=== PATIENT | male | born 1945 | race Caucasian/White ===

== ENCOUNTER 2016-08-01 03:51 | Inpatient (IN) | payer OTHER ==
[~2016-08-01] VITALS: Ht 149.9 cm; Wt 68.2 kg
[2016-08-01] MEDS ORDERED: SOD CHLORIDE 0.9% 1,000 ML IV STA (05:12)
[2016-08-01] MEDS ORDERED: ONDANSETRON 4 MG INJ IV STA ×2 (05:12→06:21)
[2016-08-01] MEDS ORDERED: BELLADONNA/PHENOBARBITAL TAB PO STA (05:12)
[2016-08-01] MEDS ORDERED: LIDOCAINE/MYLANTA 40 ML BTL PO STA (05:12)
[2016-08-01] MEDS ORDERED: morphine 4 MG/ML VIAL IV STA (05:12)
[2016-08-01 05:36] LABS: ADD SCAN DIFF NO
[2016-08-01 05:44] LABS: BASOPHIL # 0.1 10^3/ul (0.0-0.1); BASOPHILS % 0.3 % (0.0-2.0); EOSINOPHILS % 0.2 % (0.0-7.0); HEMATOCRIT 48.1 % (42.0-52.0); LYMPHOCYTES # 2.8 10^3/ul (0.8-2.9); MEAN CORPUSCULAR HGB CONC 33.3 g/dl (32.0-37.0); MEAN CORPUSCULAR VOLUME 90.1 fl (82.0-101.0); MEAN PLATELET VOLUME 8.9 fl (7.4-10.4); MONOCYTE # 0.8 10^3/ul (0.3-0.9); MONOCYTES % 4.5 % (0.0-11.0); NEUTROPHIL # 13.6 10^3/ul (1.6-7.5); NEUTROPHILS % 78.6 % (39.0-77.0); PLATELET COUNT 370 10^3/UL (140-415); RED BLOOD COUNT 5.34 10^6/ul (4.70-6.10); WHITE BLOOD COUNT 17.3 10^3/ul (4.8-10.8)
[2016-08-01 05:58] LABS: ALBUMIN 4.6 g/dl (3.3-4.9)
[2016-08-01 05:59] LABS: CHLORIDE 102 mmol/L (97-110); SODIUM 149 mmol/L (135-144)
[2016-08-01 06:01] LABS: ALBUMIN/GLOBULIN RATIO 1.39; ALKALINE PHOSPHATASE 92 IU/L (42-121); ASPARTATE AMINO TRANSFERASE 196 IU/L (15-46); BILIRUBIN,INDIRECT 0.3 mg/dl (0-1.1); BILIRUBIN,TOTAL 0.3 mg/dl (0.2-1.3); CARBON DIOXIDE 29 mmol/L (21-31); CREATININE 1.13 mg/dl (0.61-1.24); TOTAL PROTEIN 7.9 g/dl (6.1-8.1)
[2016-08-01 06:02] LABS: ALANINE AMINOTRANSFERASE 57 IU/L (13-69); BLOOD UREA NITROGEN 15 mg/dl (7-20); CALCIUM 9.8 mg/dl (8.4-10.2); GLUCOSE 244 mg/dl (70-220)
[2016-08-01 06:13] LABS: ANION GAP 21 (8-16)
[2016-08-01 06:14] LABS: ETHANOL < 10.0 mg/dl; TROPONIN-I < 0.012 ng/ml (0.00-0.12)
--- NOTE | 2016-08-01 06:18 | RADRPT ---
PROCEDURE: CT ABDOMEN/PELVIS WITHOUT CONTRAST CLINICAL INDICATION: 70-year-old male with abdominal pain. TECHNIQUE: The study was performed utilizing a [employer] VCT 64-slice CT scanner. Direct axia l sections were obtained through the abdomen and pelvis without the use of intravenous contrast mate rial. Sagittal and coronal reformations were obtained. One or more of the following dose reduction t echniques were utilized: automated exposure control, adjustment of the mA and/or kV according to pat ient's size or use of iterative reconstruction technique. The images were reviewed on a PACS workst [employer]. CTD/vol = 12.6 mGy; Total Exam DLP = 793.1 mGy-cm. COMPARISON: None. FINDINGS: Mild cardiomegaly is noted. Coronary artery calcifications are present. There is minimal bibasilar subsegmental atelectasis. There is no evidence for significant pleural effusion. There is mild free fluid identified surrounding the liver and spleen. The liver has a normal size and contour without focal areas of abnormal density. No intrahepatic nor extrahepatic biliary ductal dilatation is seen. The gallbladder is without calcified stones or significant wall thickening. The pancreas is diffus montse edematous with peripancreatic infiltration as well as mild free fluid extending into the anterio r pararenal space consistent with acute pancreatitis. The spleen is diminutive but without abnormal density. The adrenal glands are unremarkable. The kidneys are without abnormal density. No hydroure teronephrosis nor nephroureterolithiasis is evident. The urinary bladder contains urine and has kary ed diffuse wall thickening measuring up to 14 mm. The prostate is mildly enlarged and heterogeneous measuring 4.7 x 4.0 x 5.0 cm with central calcifications.. The stomach is distended wi th fluid. Multiple diverticula scattered throughout the colon without surrounding inflammatory day ges. There is no evidence for bowel obstruction. The appendix is visualized and is without abnorma l thickening or surrounding inflammatory reaction. There is a small right inguinal hernia containing fat. The aortoiliac vessels are minimally calcified but without aneurysmal dilatation. Degenerativ e changes are present throughout the spine. At L4-5 there is degenerative spondylolisthesis of appr oximately 25% with a vacuum disk and diffuse disk bulge resulting in [id number] bilateral fo raminal stenosis. There appears to be a transitional level. IMPRESSION: 1. Cardiomegaly with coronary artery calcifications. 2. Marked diffuse acute pancreatitis. 3. Mild free fluid surrounding the liver and spleen as well as within the anterior pararenal space. 4. Markedly thickened bladder wall measuring up to 14 mm. A cystitis could have this appearance. Clinical correlation is necessary. 5. Mildly enlarged heterogeneous prostate. 6. Colonic diverticulosis. 7. Small right inguinal hernia containing fat. 8. Degenerative changes within the spine. .Magnus Spears MD, MD Date Time Electronically viewed and signed by .Magnus Spears MD, MD on 08/01/2016 06:18 .M/
[2016-08-01] MEDS ORDERED: HYDROmorphONE 2 MG/ML SYG IV STA ×2 (06:21→12:59)
[2016-08-01] MEDS ORDERED: SOD CHLORIDE 0.9% 1,000 ML IV ONE (06:30)
--- NOTE | 2016-08-01 06:39 | ERA ---
ER Documentation Chief Complaint Date/Time DATE: 08/01/16 TIME: 06:30 Chief Complaint AP since 0200. Drank alcohol d/t Sister HPI Patient is a 70-year-old male who apparently drank alcohol because his sister . He was fine when he went to bed around 0200 a.m. he was awakened suddenly with severe epigastric pain and vomiting. He states the pain is now radiating to his upper back. He has never experienced this pain before and it is worse when he moves. He has not had any fever, diarrhea, dysuria, or hematuria. He says nothing really makes the pain better. He denies any chest pain, shortness of breath, cough, congestion, rhinorrhea, sore throat, otalgia, headache, vertigo, dizziness, loss of consciousness, hematemesis, hematochezia, melena, abnormal bleeding, or bruises. The remainder review systems are negative. ROS All systems reviewed and are negative except as per history of present illness. Allergies Allergies: Coded Allergies: No Known Allergy (Unverified , 08/01/16) PMhx/Soc History of Surgery: Yes (shoulder sx) Anesthesia Reaction: No Hx Neurological Disorder: No Hx Respiratory Disorders: No Hx Cardiac Disorders: No Hx Psychiatric Problems: No Hx Miscellaneous Medical Probl: Yes (borderline dm, hernia) Hx Alcohol Use: Yes Hx Substance Use: No Hx Tobacco Use: No Smoking Status: Never smoker FmHx Family History: coronary disease, diabetes Physical Exam Vitals Vital Signs Date Time Temp Pulse Resp B/P Pulse Ox O2 Delivery O2 Flow Rate FiO2 08/01/16 05:00 97.9 62 20 151/75 98 Room Air 08/01/16 04:08 96.6 69 18 142/67 96 Physical Exam Const: [] Well-developed well-nourished male lying on the bed in obvious discomfort Head: Atraumatic normocephalic Eyes: Normal Conjunctiva ENT: Normal External Ears, Nose and Mouth. Neck: Full range of motion..~ No meningismus. Resp: Clear to auscultation bilaterally Cardio: Regular rate and rhythm, no murmurs Abd: Soft, tender to palpation across the upper abdomen most prominent in the epigastric region, no audible bowel sounds, rebound noted in epigastric region, no masses Skin: No petechiae or rashes Back: No midline or flank tenderness Ext: No cyanosis, or edema Neur: Awake and alert, oriented 3 with a GCS of 15 Psych: Normal Mood and Affect Result Diagram: 08/01/1615 08/01/1615 Results 24 hrs Laboratory Tests Test 08/01/16 05:15 Alanine Aminotransferase (ALT/SGPT) 57IU/L Albumin 4.6g/dl Albumin/Globulin Ratio 1.39 Alkaline Phosphatase 92IU/L Anion Gap 21 Aspartate Amino Transf (AST/SGOT) 196IU/L Basophils # 0.110^3/ul Basophils % 0.3% Blood Urea Nitrogen 15mg/dl Calcium Level 9.8mg/dl Carbon Dioxide Level 29mmol/L Chloride Level 102mmol/L Creatinine 1.13mg/dl Direct Bilirubin 0.00mg/dl Eosinophils # 0.010^3/ul Eosinophils % 0.2% Ethyl Alcohol Level < 10.0mg/dl Globulin 3.30g/dl Glucose Level 244mg/dl Hematocrit 48.1% Hemoglobin 16.0g/dl Indirect Bilirubin 0.3mg/dl Lipase Pending Lymphocytes # 2.810^3/ul Lymphocytes % 16.0% Mean Corpuscular Hemoglobin 30.0pg Mean Corpuscular Hemoglobin Concent 33.3g/dl Mean Corpuscular Volume 90.1fl Mean Platelet Volume 8.9fl Monocytes # 0.810^3/ul Monocytes % 4.5% Neutrophils # 13.610^3/ul Neutrophils % 78.6% Nucleated Red Blood Cells # 0.010^3/ul Nucleated Red Blood Cells % 0.0/100WBC Platelet Count 30634^3/UL Potassium Level 3.0mmol/L Red Blood Count 5.3410^6/ul Red Cell Distribution Width 13.0% Sodium Level 149mmol/L Total Bilirubin 0.3mg/dl Total Protein 7.9g/dl Troponin I < 0.012ng/ml White Blood Count 17.310^3/ul Current Medications Medications (Trade) Dose Ordered Sig/Carol Route PRN Reason Start Time Stop Time Status Last Admin Dose Admin Sodium Chloride (NS) 1,000 ml @ 1,000 mls/hr Q1H STAT IV 08/01/16 05:12 08/01/16 06:11 DC 08/01/16 05:25 Morphine Sulfate (morphine) 4 mg ONCE STAT IV 08/01/16 05:12 08/01/16 05:14 DC 08/01/16 05:24 Ondansetron HCl (Zofran Inj) 4 mg ONCE STAT IV 08/01/16 05:12 08/01/16 05:14 DC 08/01/16 05:24 Miscellaneous Medication (Gi Cocktail (2)) 40 ml ONCE STAT PO 08/01/16 05:12 08/01/16 05:14 DC 08/01/16 05:24 Belladonna/ Phenobarbital () 2 tab ONCE STAT PO 08/01/16 05:12 08/01/16 05:14 DC 08/01/16 05:24 Hydromorphone HCl (Dilaudid) 2 mg ONCE STAT IV 08/01/16 06:21 08/01/16 06:22 DC Ondansetron HCl (Zofran Inj) 4 mg ONCE STAT IV 08/01/16 06:21 08/01/16 06:22 DC Procedures/MDM Differential includes but is not limited to epigastric pain, gastritis, ulcer, pancreatitis, cholecystitis, cholelithiasis, angina EKG: Rate/Rhythm: Normal Sinus Rhythm at 65 beats a minute with nonspecific T-wave flattening in the lateral leads no evidence for acute ischemia noted, no old EKG available for comparison QRS, ST, T-waves: No changes consistent w/ acute ischemia Impression: No evidence of ischemia or arrhythmia CT abdomen pelvis reveals marked pancreatitis 0630: Patient's blood pressure remained stable. He continues to have significant pain. I have ordered 2 mg of Dilaudid IV with 4 mg of Zofran IV. I have consulted the panel physician to admit him to the hospital for further evaluation and treatment. Departure Diagnosis: Primary Impression: Pancreatitis Qualified Code: K85.20 - Alcohol-induced acute pancreatitis, unspecified complication status Additional Impression: Abdominal pain Qualified Code: R10.13 - Epigastric pain Condition: KATERYNA Gann Aug 01, 2016 06:39
[2016-08-01] MEDS ORDERED: NA BICARBONATE 8.4% 50 ML SYG ONE (07:00)
[2016-08-01] MEDS ORDERED: CA CHLORIDE 10% 10 ML SYRINGE ONE (07:00)
[2016-08-01] MEDS ORDERED: EPINEPHrine 0.1 MG/ML SYG ONE (07:00)
[2016-08-01] MEDS ORDERED: NS + KCL 20 MEQ 1,000 ML IV SCH (08:56)
[2016-08-01] MEDS ORDERED: DOCUSATE SODIUM 100 MG CAP PO PRN (09:00)
[2016-08-01] MEDS ORDERED: NACL 0.9% 3 ML SYG IV SCH (09:00)
[2016-08-01] MEDS ORDERED: ACETAMINOPHEN 325 MG TAB PO PRN ×2 (09:00)
[2016-08-01] MEDS ORDERED: BISACODYL 10 MG SUPP PR PRN (09:00)
[2016-08-01] MEDS ORDERED: ONDANSETRON 4 MG INJ IV PRN (09:00)
[2016-08-01] MEDS ORDERED: HYDROCODONE/APAP (5/325) TAB PO PRN ×2 (09:00)
[2016-08-01] MEDS ORDERED: ACETAMINOPHEN 650 MG SUPP PR PRN (09:00)
[2016-08-01] MEDS ORDERED: POTASSIUM CHLORIDE 250 ML IVPB ONE ×2 (09:00→18:00)
[2016-08-01] MEDS ORDERED: MAGNESIUM HYDROXIDE 30ML CUP PO PRN (09:00)
[2016-08-01 14:20] VITALS: TEMP 98.1
[2016-08-01 14:45] VITALS: BP 171/101; PULSE 107; RESP 18
[2016-08-01] MEDS ORDERED: hydrALAzine 20 MG INJ IV PRN (15:00)
[2016-08-01] MEDS: D5W-0.45 NACL + KCL 20 MEQ 1,000 ML IV SCH (15:40)
--- NOTE | 2016-08-01 15:46 | HP ---
DATE OF ADMISSION: 08/01/2016 CHIEF COMPLAINT: Abdominal pain. HISTORY OF PRESENT ILLNESS: This is a 70-year-old male with past medical history of hypertension and dyslipidemia who came to [facility] due to reports of abdominal pain. According to the patient, he started to have abdominal pain roughly around 2:00 a.m. this morning. He did report that he had consumed some alcohol roughly half an ounce of vodka with soda around 6:00 p.m. He denied any chronic alcohol use. He did report that he started to drink after he found out that his sister was in a coma in [facility]. Subsequently, when he woke up with pain at 2:00 in the morning, he did have yellowish emesis and did report having vomiting for 45 minutes, nonbilious, nonbloody. He did report having also diffuse abdominal discomfort, more in the epigastric area. He did come to [facility] due to the aforementioned issues. Upon further examination, he did have CT scan of his abdomen that did show him to have cardiomegaly with coronary artery calcifications as well as marked diffuse acute pancreatitis and noted fluid surrounding the liver and spleen, as well as within the pararenal space. There was also markedly thickened bladder pressure to 14 mm with possibility of cystitis. He was also seen with colonic diverticulosis but no mention of diverticulitis. There was also seen a small right inguinal hernia containing fat. Patient also on blood work did have a sodium of 149, potassium 3.0 and a lipase of 37,137. He also had a white count of 17.3. We will evaluate him for the aforementioned issues. MEDICAL AND SURGICAL HISTORY 1. Hypertension. 2. Dyslipidemia. 3. Reported abdominal tumor (details of this history are unknown). ALLERGIES: NO KNOWN ALLERGIES. SOCIAL HISTORY: Patient does report consuming alcohol, but no drug use or cigarette smoking. ALLERGIES: NO KNOWN ALLERGIES. FAMILY HISTORY: Noncontributory. REVIEW OF SYSTEMS: A 12-point review of systems obtained and is entirely negative except as mentioned in the history of present illness. HOME MEDICATIONS: None. PHYSICAL EXAMINATION: VITAL SIGNS: Temperature is 98.1, pulse 78, respiratory rate 20, blood pressure 166/98 and pulse oximetry 98% on room air. GENERAL: This is a 70-year-old male, appears stated age, in distress secondary to abdominal pain. EYES: Pupils equal, round and reactive to light. Anicteric sclerae. NECK: Supple, nontender. No JVD. CARDIOVASCULAR: S1, S2 auscultated, regular rate. PULMONARY: Clear to auscultation bilaterally. No wheezing or rhonchi. ABDOMEN: Protuberant. He is obese and noted pain upon palpation of upper abdominal quadrants. SKIN: Warm, dry, and intact. NEUROLOGIC: Alert, oriented x3. LABORATORY DATA: WBC 17.3, hemoglobin 6.0, hematocrit 48.1 and platelets are 370. Sodium is 149, potassium 3.0, BUN is 15, creatinine 1.13. AST 196. Lipase 37,137. IMAGING: Abdominal pelvic CT scan done on 08/01/2014 did show cardiomegaly with coronary artery calcifications and marked diffuse acute pancreatitis as well as mild free fluid surrounding the liver and spleen, as well as anterior pararenal space. There was also seen a markedly thickened bladder wall measuring up to 14 mm with the possibility of cystitis. There was seen a mildly enlarged heterogeneous prostate and colonic diverticulosis without a mention of diverticulitis. IMPRESSION AND PLAN: 1. Acute pancreatitis. Suspect possibility from alcohol use. Continue IV fluids. Continue with analgesics as needed. N.p.o. for now. 2. Suspect cystitis. Patient with elevated white count. Follow up on UA and urine culture. 3. Hypokalemia. We will repeat and check level in a.m. 4. Hypernatremia. cont IVF. Check level in AM 5. Essential hypertension. Continue antihypertensives and adjust as needed. 6. History of dyslipidemia. Follow up on A1c. Will start on statin medication pending diagnostic results. 7. Colonic diverticulosis. Continue IV fluids, n.p.o. for now. Analgesics as needed. 8. Transaminitis, likely secondary to #1. 9. Will monitor trend. ADMISSION PROCESS TIME: 40 minutes. Discussed plan of care with Dr. Schwartz. Dictated By: IRENE OHARA NP for KRISTINE AU/RODRIGUEZ Conf#: [id number] DID#: [id number] MTDD
[2016-08-01] MEDS: morphine 2 MG INJ IV PRN (18:26)
[2016-08-01] MEDS: ONDANSETRON 4 MG INJ IV PRN (18:26)
[2016-08-01 20:01] VITALS: BP 134/78; RESP 20
[2016-08-01] MEDS ORDERED: morphine 2 MG INJ IV ONE (21:40)
[2016-08-01 22:16] LABS: ADD UMIC YES; URINE BILIRUBIN (Dip) 1+ (NEGATIVE); URINE BLOOD (Dip) TRACE (NEGATIVE); URINE COLOR YELLOW (YELLOW); URINE KETONES (Dip) NEGATIVE (NEGATIVE); URINE LEUKOCYTE ESTERASE (Dip) NEGATIVE (NEGATIVE); URINE NITRITE (Dip) NEGATIVE (NEGATIVE); URINE TOTAL PROTEIN (Dip) 2+ (NEGATIVE); URINE UROBILINOGEN (Dip) 0.2 E.U./dL (0.1-1.0)
[2016-08-01 22:53] LABS: ICTOTEST NEGATIVE (NEGATIVE)
[2016-08-01 22:54] LABS: SQUAMOUS EPITHELIAL CELL,UR FEW; URINE RBCS 0-2 /HPF (0)
[2016-08-01 23:48] VITALS: BP 112/59; RESP 18
[2016-08-02] VITALS (50 sets, daily range): BP systolic 57–175; BP diastolic 23–136; PULSE 89–127; RESP 14–46; Ht 149.9 cm; Wt 68.2 kg
[2016-08-02] MEDS: ONDANSETRON 4 MG INJ IV PRN ×2 (01:44→16:00)
[2016-08-02] MEDS: morphine 2 MG INJ IV PRN ×2 (01:48→10:18)
[2016-08-02] MEDS: D5W-0.45 NACL + KCL 20 MEQ 1,000 ML IV SCH ×2 (03:56→07:00)
[2016-08-02] MEDS: PANTOPRAZOLE 40 MG INJ IV SCH (06:21)
[2016-08-02] MEDS ORDERED: INSULIN ASPART [NOVOLOG] 3 ML PEN SC ONE (09:00)
[2016-08-02 09:17] LABS: AADO2 Arterial 176.9 mmHg (7.0-24.0); Arterial Base Excess -15.2 mmol/L (-3.0-3); Arterial COHb 0.4 % (0.0-3.0); Arterial Fraction of Oxyhgb 93.5 % (93.0-99.0); Arterial HCO3 8.8 mmol/L (22.0-26.0); Arterial MetHb 0.5 % (0.0-1.5); Arterial Total Hemglobin 16.6 g/dl (12.0-18.0); MODE NASAL CANNULA
--- NOTE | 2016-08-02 09:23 | QN ---
Documentation Comment rapid response called 0905. patient noted to be diaphoretic and tachycardic with blood glucose as high as 519. Noted to be tachycardic on EKG. Patient given NovoLog 10 units subcu as well as bolus of normal saline. Patient more alert. Follow-up on CMP ABG and urinalysis. Transfer to ICU with insulin drip pending clinical course. Discussed plan of care with IRENE Boyd Aug 02, 2016 09:22
[2016-08-02 09:26] LABS: ALBUMIN 3.4 g/dl (3.3-4.9); ALBUMIN/GLOBULIN RATIO 1.25; BILIRUBIN,INDIRECT 0.6 mg/dl (0-1.1); BILIRUBIN,TOTAL 0.6 mg/dl (0.2-1.3); CALCIUM 8.2 mg/dl (8.4-10.2); CREATININE 4.13 mg/dl (0.61-1.24); TOTAL PROTEIN 6.1 g/dl (6.1-8.1)
[2016-08-02 09:30] LABS: POTASSIUM 6.4 mmol/L (3.5-5.1)
[2016-08-02] MEDS ORDERED: SOD CHLORIDE 0.9% 1,000 ML IV SCH ×2 (09:30→11:30)
[2016-08-02] MEDS ORDERED: DEXTROSE 50% 50 ML SYRINGE IV PRN ×2 (09:30)
--- NOTE | 2016-08-02 09:32 | PN ---
Date/Time of Note Date/Time of Note DATE: 08/02/16 TIME: 09:26 Assessment/Plan VTE Prophylaxis VTE Prophylaxis Intervention: SCD's Lines/Catheters IV [facility] Peripheral IV Assessment/Plan Chief Complaint/Hosp Course Assessment/Plan 1. Acute pancreatitis. Suspect possibility from alcohol use. Continue IV fluids. Continue with analgesics as needed. NPO 2. Suspect cystitis. awaiting u/a and urine culture . 3. Hypokalemia. Awaiting follow up lab. will replete as needed 4. Hypernatremia. cont IVF. follow up level 5. Essential hypertension. Continue antihypertensives and adjust as needed. 6. History of dyslipidemia. awaiting lipid panel 7. Colonic diverticulosis. Continue IV fluids, n.p.o. for now. Analgesics as needed. 8. Transaminitis, likely secondary to #1. Will monitor trend. 9. suspect DKA. patient with glucose over 500. start on insulin drip. transfer to icu 10. ROD. renal consult to follow DISPO/PLAN: Transfer to ICU. start on insulin drip. field coil winder to follow Discussed plan of care with Dr. Schwartz Problems: Subjective 24 Hr Interval Summary Free Text/Dictation alert but diaphoretic, also tachypneic and tachycardic Exam/Review of Systems Vital Signs Vitals Vital Signs Date Time Temp Pulse Resp B/P Pulse Ox O2 Delivery O2 Flow Rate FiO2 08/02/16 07:00 98.7 120 20 136/76 95 08/01/16 14:45 Room Air Intake and Output 08/01/16 08/01/16 08/02/16 15:00 23:00 07:00 Intake Total 425 ml 950 ml Output Total 50 ml 50 ml Balance 375 ml 900 ml Exam General: in mild distress, tachycardic and tachypneic Eyes: Pupils equal round Neck: Supple nontender, no JVD Cardiac: Tachycardic Pulmonary: Tachypneic. No obvious wheezing or rhonchi noted GI: Tender upon palpation epigastric area Extremities: No edema noted bilateral lower extremities Skin: CDI Neurologic: NEVIN x 4 Results Result Diagram: 08/01/16 0515 08/01/16 0515 Results 24 hrs Laboratory Tests Test 08/01/16 18:10 08/02/16 04:20 08/02/16 08:05 08/02/16 08:34 Urine Amorphous Urates FEW Urine Bilirubin 1+ H Urine Clarity SLIGHTLY CLOUDY Urine Color YELLOW Urine Glucose 0.25% H Urine Hemoglobin TRACE Urine Ictotest NEGATIVE Urine Ketones NEGATIVE Urine Leukocyte Esterase NEGATIVE Urine Microscopic RBC 0-2 Urine Microscopic WBC 10-25 Urine Nitrite NEGATIVE Urine Specific [place] >=1.030 H Urine Squamous Epithelial Cells FEW Urine Total Protein 2+ H Urine Urobilinogen 0.2 E.U./dL Urine pH 5.0 Hemoglobin A1c 7.6 H Bedside Glucose 519 *H 530 *H Test 08/02/16 08:43 Arterial Blood HCO3 8.8 *L Arterial Blood Base Excess -15.2 L Arterial Blood Oxygen Saturation 94.3 L Van Test N/A Arterial Blood Gas Puncture Site LB Arterial Blood Carboxyhemoglobin 0.4 Arterial Blood Date Drawn 08/02/2016 9:00:14 AM Arterial Blood Methemoglobin 0.5 Arterial Blood pCO2 (Temp correct) 19.1 L Arterial Blood pH (Temp corrected) 7.280 *L Arterial Blood pO2 (Temp corrected) 79.2 L Blood Gas A-a O2 Differential 176.9 H Blood Gas Critical Value Read Back RIGIDOR P Blood Gas Modality NASAL CANNULA Blood Gas Notified Time 08/02/2016 9:16:11 AM Blood Gas Notified Whom CW Blood Gas Specimen Source Blood arterial Blood Gas Temperature 37.0 FiO2 39.0 Oxyhemoglobin Percent 93.5 Total Hemoglobin 16.6 Medications Medications Current Medications Ondansetron HCl (Zofran Inj) 4 mg Q6H PRN IV NAUSEA AND/OR VOMITING Last administered on 08/02/16t 01:44; Admin Dose 4 MG; Start 08/01/16 at 09:00 Acetaminophen (Tylenol Tab) 650 mg Q6H PRN PO PAIN LEVEL 1-3 OR FEVER; Start at 09:00 Acetaminophen (Tylenol Supp) [address] PAIN LEVEL 1-3 OR FEVER; Start 08/01/16 at 09:00 Acetaminophen/ Hydrocodone Bitart ([place] (5/325)) 1 tab Q6H PRN PO MODERATE PAIN LEVEL 4-6; Start 08/01/16 at 09:00 Acetaminophen/ Hydrocodone Bitart ([place] (5/325)) 2 tab Q6H PRN PO SEVERE PAIN LEVEL 7-10; Start 08/01/16 at 09:00 Morphine Sulfate (morphine) 2 mg Q4H PRN IV SEVERE PAIN LEVEL 7-10 Last administered on 08/02/16 01:48; Admin Dose 2 MG; Start 08/01/16 at 09:00 Docusate Sodium (Colace) 100 mg Q12H PRN PO CONSTIPATION; Start 08/01/16 at 09: 00 Magnesium Hydroxide (Milk Of Mag) 30 ml DAILY PRN PO CONSTIPATION; Start at 09:00 Bisacodyl (Dulcolax Supp) [address] CONSTIPATION Last administered on 08/02/16 06:21; Admin Dose 10 MG; Start 08/01/16 at 09:00 Pantoprazole (Protonix Iv) 40 mg DAILY@06 IV Last administered on 08/02/16 06: 21; Admin Dose 40 MG; Start 08/02/16 at 06:00 Lorazepam (Ativan) 1 mg Q4 PRN IV etoh withdrawal; Start 08/01/16 at 09:00 Hydralazine HCl 10 mg 10 mg Q4H PRN IV sbp>160 Last administered on 08/01/16 15:40; Admin Dose 10 MG; Start 08/01/16 at 15:00 Potassium Chloride/Dextrose/ Sod Cl (D5-1/2ns + KCl 20 Meq) 1,000 ml @ 125 mls/ hr Q8H IV Last administered on 08/02/16 03:56; Admin Dose 125 MLS/HR; Start at 15:00 IRENE OHARA Aug 02, 2016 09:31
[2016-08-02 09:42] LABS: ADD SCAN DIFF NO
[2016-08-02 09:49] LABS: ABNORMAL IP MESSAGE 1; BASOPHILS % 0.2 % (0.0-2.0); HEMATOCRIT 48.8 % (42.0-52.0); HEMOGLOBIN 15.4 g/dl (14.0-18.0); LYMPHOCYTES # 1.7 10^3/ul (0.8-2.9); LYMPHOCYTES % 13.6 % (15.0-51.0); MEAN CORPUSCULAR HEMOGLOBIN 29.6 pg (29.0-33.0); MEAN CORPUSCULAR HGB CONC 31.6 g/dl (32.0-37.0); MEAN CORPUSCULAR VOLUME 93.7 fl (82.0-101.0); MEAN PLATELET VOLUME 10.5 fl (7.4-10.4); MONOCYTE # 0.6 10^3/ul (0.3-0.9); MONOCYTES % 4.5 % (0.0-11.0); NEUTROPHILS % 81.5 % (39.0-77.0); PLATELET COUNT 187 10^3/UL (140-415); RED BLOOD COUNT 5.21 10^6/ul (4.70-6.10); RED CELL DISTRIBUTION WIDTH 14.1 % (11.5-14.5); WHITE BLOOD COUNT 12.3 10^3/ul (4.8-10.8)
[2016-08-02 09:57] LABS: ALBUMIN 3.3 g/dl (3.3-4.9)
[2016-08-02 09:59] LABS: BILIRUBIN,INDIRECT 0.6 mg/dl (0-1.1); BILIRUBIN,TOTAL 0.6 mg/dl (0.2-1.3); CREATININE 4.13 mg/dl (0.61-1.24)
[2016-08-02 10:00] LABS: ALBUMIN/GLOBULIN RATIO 1.22; CALCIUM 8.2 mg/dl (8.4-10.2)
[2016-08-02 10:12] LABS: POTASSIUM 6.6 mmol/L (3.5-5.1)
[2016-08-02] MEDS: ACCU-CHEK XX SCH ×14 (10:21→22:23)
[2016-08-02 10:26] LABS: BILIRUBIN,INDIRECT 0.6 mg/dl (0-1.1); BILIRUBIN,TOTAL 0.6 mg/dl (0.2-1.3); CREATININE 3.54 mg/dl (0.61-1.24); TOTAL PROTEIN 6.2 g/dl (6.1-8.1)
[2016-08-02 10:27] LABS: CALCIUM 8.3 mg/dl (8.4-10.2); CHOL/HDL RATIO 2.8 RATIO; MAGNESIUM 2.6 mg/dl (1.7-2.5); PHOSPHORUS 3.5 mg/dl (2.5-4.9)
[2016-08-02] MEDS ORDERED: LACTATED RINGER'S 1,000 ML IV SCH (10:30)
[2016-08-02] MEDS ORDERED: LIDOCAINE 1% (MDV) 20 ML INJ SC ONE (10:30)
[2016-08-02 10:51] LABS: POTASSIUM 6.4 mmol/L (3.5-5.1)
[2016-08-02] MEDS: INSULIN REGULAR, HUMAN 100 UNIT in SOD CHLORIDE 0.9% 99 ML IV SCH ×2 (11:21)
[2016-08-02] MEDS ORDERED: NA POLYST SULFON 15 GM/60 ML BTL PO ONE (11:30)
[2016-08-02] MEDS ORDERED: POTASSIUM CHLORIDE 20 MEQ in SOD CHLORIDE 0.9% 1,000 ML IV SCH (11:30)
[2016-08-02 11:42] LABS: T3 UPTAKE 37.7 % (23.5-40.5)
--- NOTE | 2016-08-02 11:52 | RADRPT ---
PROCEDURE: Complete abdominal and retroperitoneum ultrasound. CLINICAL INDICATION: Abdominal pain TECHNIQUE: Bray scale and color doppler ultrasound images of the abdomen and retroperitoneum. COMPARISON: CT abdomen pelvis 08/01/2016 FINDINGS: Pancreas: Poorly visualized due to overlying bowel gas. Liver: Morphology: Normal in size and contour. Echogenicity: Normal. Focal lesions: None. Main portal vein: Patent with hepatopetal flow. Biliary System: Normal appearing gallbladder wall. Several small gallstones are present within the gallbladder. No intrahepatic biliary dilatation. Common bile duct diameter: 7.0 mm Kidneys: Right length: 8.4 cm; appears mildly under measured. Right renal cortical thickness is preserved. Left length: 9.3 cm. Left renal cortical thickness is preserved. Normal echogenicity. No hydronephrosis. No renal calculi. No focal renal lesions. Spleen: Normal in size, no focal lesions. Mild perihepatic ascites. IMPRESSION: Cholelithiasis without evidence of abnormal gallbladder wall thickening to suggest cholecystitis. Normal caliber of the intrahepatic and extrahepatic biliary system. Mild perihepatic ascites. Increased echogenicity of the liver parenchyma suggestive of hepatic steatosis. RPTAT: AADD .Jeffrey Walker MD, MD Date Time Electronically viewed and signed by .Jeffrey Walekr MD, MD on 08/02/2016 11:51 .B/
[2016-08-02] MEDS ORDERED: NA BICARBONATE 8.4% 50 ML SYG IV ONE (12:00)
--- NOTE | 2016-08-02 12:07 | CONS ---
DATE OF ADMISSION: 08/01/2016 DATE OF CONSULTATION: 08/02/2016 TYPE OF CONSULTATION: Pulmonary. REASON FOR CONSULTATION: Hypoxemia. Thank you, Dr. Schwartz, for this consultation. HISTORY OF PRESENT ILLNESS: This is a 70-year-old gentleman with a history of extensive alcohol abu se, who came in with abdominal pain, nausea and vomiting and was found to have acute pancreatitis, a nd now severe metabolic acidosis with evidence of renal failure. The patient continues to drink and had done so prior to this admission. PAST MEDICAL HISTORY: Also includes hypertension, hyperlipidemia. No melena, no hematemesis, no he moptysis. PAST MEDICAL HISTORY: Hypertension, hyperlipidemia, and significant alcohol abuse. SOCIAL HISTORY: Nonsmoker. No history of drug abuse. FAMILY HISTORY: Noncontributory. SYSTEMS REVIEW: A 12-point review of systems was negative, other than mentioned above. PHYSICAL EXAMINATION: GENERAL: Moderately obese gentleman, awake, alert, on face mask O2. VITAL SIGNS: Temperature 98, pulse is 100, blood pressure 107/62, O2 saturation 96% on a nonrebreat her. NECK: Supple. No JVD or lymphadenopathy. CARDIAC EXAM: S1, S2. No added sounds or murmurs. CHEST: Diminished air entry in both lung yanez. ABDOMEN: Obese, soft, tender in the epigastric area. EXTREMITIES: No cyanosis or clubbing. 2+ edema. NEUROLOGIC: Generalized weakness. LABORATORY: Potassium 6.6, BUN 49, creatinine 4.13. Blood glucose was 486. ABG 7.28, pCO2 of 19, bicarbonate was 8.8, hemoglobin 2.31. IMPRESSION AND PLAN: 1. Acute pancreatitis, with [place] amylase [place] 1953[place] [address]. 2. Severe hypoglycemia. 2. Electrolyte imbalance, with acute renal failure with metabolic acidosis. The patient will need: 1. Aggressive volume resuscitation. 2. Pain control. 3. Correction of metabolic acidosis. 4. Potentially emergent hemodialysis. 5. Insulin drip for hyperglycemia management. Overall prognosis is guarded. Dictated By: MARISA JUNIOR/RODRIGUEZ Conf#: [id number] DID#: [id number]
[2016-08-02] MEDS ORDERED: BUMETANIDE 25 MG in DEXTROSE 5% 150 ML IV SCH (12:45)
[2016-08-02] MEDS ORDERED: CEFEPIME 1GM/50 ML (PMX) 50 ML IVPB SCH (13:00)
[2016-08-02] MEDS ORDERED: ALBUMIN HUMAN 25% 100 ML IV PRN (13:00)
[2016-08-02] MEDS: DEXTROSE 5%-0.45% NACL 1,000 ML IV SCH ×3 (13:09→19:31)
--- NOTE | 2016-08-02 13:15 | RADRPT ---
PROCEDURE: XR Chest. CLINICAL INDICATION: Shortness of breath. TECHNIQUE: Single frontal view. COMPARISON: None. FINDINGS: There is mild atelectasis at the lung bases. The lungs are otherwise clear. There are low lung vol umes. The heart size is normal. There is no pleural effusion. There is no pneumothorax. IMPRESSION: 1. Mild atelectasis at the lung bases and low lung volumes. 2. Otherwise normal chest x-ray. RPTAT: QQ .Shashi España MD, Date Time Electronically viewed and signed by .Shashi España MD, on 08/02/2016 13:15 .R/
--- NOTE | 2016-08-02 13:16 | RADRPT ---
PROCEDURE: XR Chest. CLINICAL INDICATION: Check PICC line position. TECHNIQUE: Single frontal view. COMPARISON: 08/02/2016. 0927 hours. FINDINGS: There is a right arm PICC line with the tip coiled in the right axillary vein. Bibasilar atelectasi s and low lung volumes are once again noted. The lungs are otherwise clear. The heart size is normal. There is no pleural effusion. There is no pneumothorax. IMPRESSION: 1. Right arm PICC line tip coiled in the right axillary vein. This should be repositioned. The PIC C line nurse is aware. 2. Bibasilar atelectasis and low lung volumes. 3. Otherwise normal chest x-ray. RPTAT: QQ .Shashi España MD, MD Date Time Electronically viewed and signed by .Shashi España MD, on 08/02/2016 13:16 .R/
[2016-08-02 13:17] LABS: ALBUMIN 3.5 g/dl (3.3-4.9); ALBUMIN/GLOBULIN RATIO 1.29
--- NOTE | 2016-08-02 13:33 | RADRPT ---
PROCEDURE: XR Chest. CLINICAL INDICATION: Check PICC line position. TECHNIQUE: Single frontal view. COMPARISON: 08/02/2016. 1305 hours. FINDINGS: There is a right arm PICC line with the tip in the lower superior vena cava. There is mild atelecta sis at the lung bases and low lung volumes, unchanged. The lungs are otherwise clear. The heart size is normal. There is no pleural effusion. There is no pneumothorax. IMPRESSION: 1. Satisfactory position of right arm PICC line. 2. No other change from the prior study done earlier the same day. RPTAT: QQ .Shashi España MD, MD Date Time Electronically viewed and signed by .Shashi España MD, MD on 08/02/2016 13:32 .R/
[2016-08-02] MEDS ORDERED: BUMETANIDE 3 MG in DEXTROSE 5% 30 ML IVPB ONE (14:00)
--- NOTE | 2016-08-02 14:05 | RADRPT ---
PROCEDURE: Ultrasound guidance for placement of needle in right upper extremity vein. CLINICAL INDICATION: Venous access. TECHNIQUE: Limited sonography of the right upper extremity was performed. Ultrasound images were recorded and stored in the patient's medical record. COMPARISON: None. FINDINGS: The ultrasound images demonstrate a patent right upper extremity vein. The PICC line was inserted b y the PICC line nurse. IMPRESSION: 1. Ultrasound guidance for a needle placement in a right upper extremity vein. 2. The visualized right upper extremity vein is patent. RPTAT: QQ .Shashi España MD, MD Date Time Electronically viewed and signed by .Shashi España MD, MD on 08/02/2016 14:05 .R/
--- NOTE | 2016-08-02 14:52 | RADRPT ---
AMENDMENT: 08/03/2016 3:09:45 PM Shashi España MD Correction: According to the technologist who performed the study, the images are all incorrectly labeled left. According to the technologist who performed the study, the images are actually all of the right uppe r arm. PROCEDURE: Ultrasound of the soft tissues of the left upper arm. CLINICAL INDICATION: Left upper arm pain and swelling following PICC line placement. TECHNIQUE: High-resolution sonography of the left upper arm at the site of the pain and swelling w as performed in the axial and sagittal planes. COMPARISON: None FINDINGS: There is no fluid collection or mass. There is no hematoma. There is diffuse soft tissue edema. IMPRESSION: 1. No fluid collection, mass, or hematoma. 2. Diffuse soft tissue edema in the left upper arm. Clinical correlation advised. 3. Any further management regarding the left upper arm pain and swelling should be based on clinica l grounds. RPTAT: QQ .Shashi España MD, MD Date Time Electronically viewed and signed by .Shashi España MD, MD on 08/03/2016 15:09 .R/
--- NOTE | 2016-08-02 14:52 | CONS ---
Date/Time of Note Date/Time of Note DATE: 08/02/16 TIME: 14:47 Assessment/Plan Assessment/Plan Chief Complaint/Hosp Course Sepsis with MSOF Acute pancreatitis ARF GIB Uncontrolled DM GPC bacteremia Obesity ETOH abuse RUE PICC==>08/02 Abx: Cefepime Plan: Change abx to Imipenem and Vanco, repeat bld cx and check urine cx, ICU care, GI/renal/endocrinology rec-s, prognosis guarded DW staff/family ALECIA Capps Thank you Problems: Consultation Date/Type/Reason Admit Date/Time Aug 01, 2016 at 08:41 Type of Consultation: ID Referring Provider: IRENE OHARA Social History Smoking Status: Never smoker Exam/Review of Systems Vital Signs Vitals Vital Signs Date Time Temp Pulse Resp B/P Pulse Ox O2 Delivery O2 Flow Rate FiO2 08/02/16 12:30 104 40 143/69 91 Non Rebreather 15.0 08/02/16 10:00 97.3 Intake and Output 08/01/16 08/01/16 08/02/16 15:00 23:00 07:00 Intake Total 425 ml 950 ml Output Total 50 ml 50 ml Balance 375 ml 900 ml Results Result Diagram: 08/02/16 0926 08/02/16 0926 Results 24 hrs Laboratory Tests Test 08/01/16 18:10 08/02/16 04:20 08/02/16 08:05 08/02/16 08:28 Urine Amorphous Urates FEW Urine Bilirubin 1+ H Urine Clarity SLIGHTLY CLOUDY Urine Color YELLOW Urine Glucose 0.25% H Urine Hemoglobin TRACE Urine Ictotest NEGATIVE Urine Ketones NEGATIVE Urine Leukocyte Esterase NEGATIVE Urine Microscopic RBC 0-2 Urine Microscopic WBC 10-25 Urine Nitrite NEGATIVE Urine Specific [place] >=1.030 H Urine Squamous Epithelial Cells FEW Urine Total Protein 2+ H Urine Urobilinogen 0.2 E.U./dL Urine pH 5.0 Alanine Aminotransferase (ALT/SGPT) 43 87 H Albumin 3.5 # 3.4 Albumin/Globulin Ratio 1.29 1.25 Alkaline Phosphatase 74 64 Amylase Level 1953 H Anion Gap 28 #H 28 H Aspartate Amino Transf (AST/SGOT) 123 H 308 #H Blood Urea Nitrogen 34 #H 38 H Calcium Level 8.3 L 8.2 L Carbon Dioxide Level 13 #L 12 L Chloride Level 106 106 Cholesterol Level 130 Cholesterol/HDL Ratio 2.8 Creatinine 3.54 #H 4.13 H Direct Bilirubin 0.00 0.00 Free Thyroxine Index 2.07 Globulin 2.70 2.70 Glucose Level 502 #*H 514 *H HDL Cholesterol 46 Hemoglobin A1c 7.6 H 7.7 H Indirect Bilirubin 0.6 0.6 LDL Cholesterol, Calculated 49 Lipase 99560 H Magnesium Level 2.6 H Phosphorus Level 3.5 Potassium Level 6.4 #*H 6.4 *H Sodium Level 141 140 Thyroid Stimulating Hormone (TSH) 18.000 H Thyroxine (T4) 5.5 Total Bilirubin 0.6 0.6 Total Protein 6.2 # 6.1 Triglycerides Level 177 H Triiodothyronine (T3) Uptake 37.7 Bedside Glucose 519 *H Test 08/02/16 08:34 08/02/16 08:43 08/02/16 09:20 08/02/16 09:26 Bedside Glucose 530 *H 367 H Arterial Blood HCO3 8.8 *L Arterial Blood Base Excess -15.2 L Arterial Blood Oxygen Saturation 94.3 L Van Test N/A Arterial Blood Gas Puncture Site LB Arterial Blood Carboxyhemoglobin 0.4 Arterial Blood Date Drawn 08/02/2016 9:00:14 AM Arterial Blood Methemoglobin 0.5 Arterial Blood pCO2 (Temp correct) 19.1 L Arterial Blood pH (Temp corrected) 7.280 *L Arterial Blood pO2 (Temp corrected) 79.2 L Blood Gas A-a O2 Differential 176.9 H Blood Gas Critical Value Read Back RIGIDOR P Blood Gas Modality NASAL CANNULA Blood Gas Notified Time 08/02/2016 9:16:11 AM Blood Gas Notified Whom CW Blood Gas Specimen Source Blood arterial Blood Gas Temperature 37.0 FiO2 39.0 Oxyhemoglobin Percent 93.5 Total Hemoglobin 16.6 Alanine Aminotransferase (ALT/SGPT) 114 H Albumin 3.3 Albumin/Globulin Ratio 1.22 Alkaline Phosphatase 62 Anion Gap 27 H Aspartate Amino Transf (AST/SGOT) 382 H Basophils # 0.0 Basophils % 0.2 Blood Urea Nitrogen 39 H Calcium Level 8.2 L Carbon Dioxide Level 13 L Chloride Level 107 Creatinine 4.13 H Direct Bilirubin 0.00 Eosinophils # 0.0 Eosinophils % 0.0 Globulin 2.70 Glucose Level 486 *H Hematocrit 48.8 Hemoglobin 15.4 Indirect Bilirubin 0.6 Lactic Acid Level 12.0 *H Lymphocytes # 1.7 Lymphocytes % 13.6 L Mean Corpuscular Hemoglobin 29.6 Mean Corpuscular Hemoglobin Concent 31.6 L Mean Corpuscular Volume 93.7 Mean Platelet Volume 10.5 H Monocytes # 0.6 Monocytes % 4.5 Neutrophils # 10.0 H Neutrophils % 81.5 H Nucleated Red Blood Cells # 0.0 Nucleated Red Blood Cells % 0.0 Phosphorus Level 4.1 Platelet Count 187 # Potassium Level 6.6 *H Red Blood Count 5.21 Red Cell Distribution Width 14.1 Sodium Level 140 Total Bilirubin 0.6 Total Protein 6.0 L White Blood Count 12.3 #H Test 08/02/16 09:42 08/02/16 10:44 08/02/16 11:29 08/02/16 12:36 Bedside Glucose 392 H 311 H 365 H 232 H Test 08/02/16 13:46 Bedside Glucose 147 Medications Medications Current Medications Ondansetron HCl (Zofran Inj) 4 mg Q6H PRN IV NAUSEA AND/OR VOMITING Last administered on 08/02/16 01:44; Admin Dose 4 MG; Start 08/01/16 at 09:00 Acetaminophen (Tylenol Tab) 650 mg Q6H PRN PO PAIN LEVEL 1-3 OR FEVER; Start at 09:00 Acetaminophen (Tylenol Supp) 650 mg Q6H PRN [place] PAIN LEVEL 1-3 OR FEVER; Start 08/01/16 at 09:00 Acetaminophen/ Hydrocodone Bitart ([place] (5/325)) 1 tab Q6H PRN PO MODERATE PAIN LEVEL 4-6; Start 08/01/16 at 09:00 Acetaminophen/ Hydrocodone Bitart ([place] (5/325)) 2 tab Q6H PRN PO SEVERE PAIN LEVEL 7-10; Start 08/01/16 at 09:00 Morphine Sulfate (morphine) 2 mg Q4H PRN IV SEVERE PAIN LEVEL 7-10 Last administered on 08/02/16 10:18; Admin Dose 2 MG; Start 08/01/16 at 09:00 Docusate Sodium (Colace) 100 mg Q12H PRN PO CONSTIPATION; Start 08/01/16 at 09: 00 Magnesium Hydroxide (Milk Of Mag) 30 ml DAILY PRN PO CONSTIPATION; Start at 09:00 Bisacodyl (Dulcolax Supp) 10 mg DAILY PRN [place] CONSTIPATION Last administered on 08/02/16 06:21; Admin Dose 10 MG; Start 08/01/16 at 09:00 Pantoprazole (Protonix Iv) 40 mg DAILY@06 IV Last administered on 08/02/16 06: 21; Admin Dose 40 MG; Start 08/02/16 at 06:00 Lorazepam (Ativan) 1 mg Q4 PRN IV etoh withdrawal; Start 08/01/16 at 09:00 Hydralazine HCl (Apresoline) 10 mg Q4H PRN IV sbp>160 Last administered on 08/01 15:40; Admin Dose 10 MG; Start 08/01/16 at 15:00 Dextrose (D50w Syringe) 50 ml Q15M PRN IV For BS 50 or less; Start 08/02/16 at 09:30 Dextrose (D50w Syringe) 25 ml Q15M PRN IV BS between 50-70; Start 08/02/16 at 09:30 Diagnostic Test (Pha) 1 ea 1 ea Q1H XX Last administered on 08/02/16 14:36; Admin Dose 1 EA; Start 08/02/16 at 09:30 Cefepime HCl 50 ml @ 100 mls/hr Q24H IVPB Last administered on 08/02/16 12:01 ; Admin Dose 100 MLS/HR; Start 08/02/16 at 13:00 Bumetanide 3 mg/ Dextrose 30 ml @ 10 mls/hr Q3H ONCE IVPB Last administered on 08/02/16 14:36; Admin Dose 10 MLS/HR; Start 08/02/16 at 14:00; Stop 08/02/16 at 16:59 Dextrose/Sodium Chloride (D5-1/2ns) 1,000 ml @ 200 mls/hr Q5H IV Last administered on 08/02/16 13:09; Admin Dose 200 MLS/HR; Start 08/02/16 at 13:30 IV Flush (NS 10 ml) 10 ml PRN PRN IV FLUSH LINE; Start 08/02/16 at 14:30 ERIK MAHAJAN NP Aug 02, 2016 14:52
[2016-08-02 14:56] LABS: ADD SCAN DIFF NO
[2016-08-02 14:58] LABS: ABNORMAL IP MESSAGE 1; HEMATOCRIT 43.9 % (42.0-52.0); HEMOGLOBIN 14.4 g/dl (14.0-18.0); MEAN CORPUSCULAR HEMOGLOBIN 30.1 pg (29.0-33.0); MEAN CORPUSCULAR HGB CONC 32.8 g/dl (32.0-37.0); MEAN CORPUSCULAR VOLUME 91.8 fl (82.0-101.0); MEAN PLATELET VOLUME 10.3 fl (7.4-10.4); PLATELET COUNT 174 10^3/UL (140-415); RED BLOOD COUNT 4.78 10^6/ul (4.70-6.10); RED CELL DISTRIBUTION WIDTH 13.8 % (11.5-14.5); WHITE BLOOD COUNT 9.4 10^3/ul (4.8-10.8)
[2016-08-02] MEDS ORDERED: VANCOMYCIN IV PER PHARMACY XX SCH (15:00)
[2016-08-02 15:17] LABS: POTASSIUM 5.1 mmol/L (3.5-5.1)
[2016-08-02 15:20] LABS: CREATININE 4.2 mg/dl (0.61-1.24)
[2016-08-02 15:21] LABS: CALCIUM 7.8 mg/dl (8.4-10.2)
[2016-08-02] MEDS ORDERED: HEPARIN 1000 UNITS/ML 10 ML INJ ONE (15:21)
[2016-08-02 15:28] LABS: AADO2 Arterial 116.5 mmHg (7.0-24.0); Allen Test ACCEPTAB; Arterial Base Excess -8.1 mmol/L (-3.0-3); Arterial COHb 0.2 % (0.0-3.0); Arterial Fraction of Oxyhgb 93.6 % (93.0-99.0); Arterial HCO3 14.2 mmol/L (22.0-26.0); Arterial MetHb 0.4 % (0.0-1.5); Arterial Total Hemglobin 15.4 g/dl (12.0-18.0); MODE NASAL CANNULA
--- NOTE | 2016-08-02 15:59 | OPR ---
Date/Time of Note Date/Time of Note DATE: 08/02/16 TIME: 15:58 Operative Report Free Text/Dictation DATE OF OPERATION: 08/02/2016 SURGEON: Willy Solis MD PREOPERATIVE DIAGNOSIS: Pancreatitis, renal failure, hyperkalemia POSTOPERATIVE DIAGNOSIS: same ANESTHESIA: Local BLOOD LOSS: minimal COMPLICATIONS: None. ACCESS: Right common femoral vein INDICATIONS: This is a 70 year-old male with renal failure and pancreatitis requiring emergent dialysis. Patient and family have been informed of the alternatives, risks, and benefits. Risks including but not limited to bleeding, thrombosis, embolization, myocardial infarction, , device malfunction, infection, pneumothorax, nephrotoxicity and patient has agreed to proceed. PROCEDURE: 1. Ultrasound guided access of right common femoral vein 2. Emergent Right common femoral vein non-tunneled hemodialysis catheter placement DESCRIPTION: The patient was in supine position in her ICU bed. Bed was placed in slight Trendelenburg position and the groin was prepped and draped with sterile technique. The central catheter was flushed with heparin to ensure function of each port. Landmarks were identified and the skin entry site was chosen using ultrasound guidance. The skin And subcutaneous tissue were anesthetized with 1% lidocaine. The vein was then located with a needle with a 10 mL syringe using ultrasound guidance. The needle was then directed towards the vein and was entered. The needle position was secured and syringe was removed. The hub was occluded to prevent venous air embolus. The guidewire was passed easily and the needle was removed while the wire was held in place. A small incision was then made at the point of the wire entry. The dilator was placed over the wire and the tract gently dilated. The catheter was fed over the wire, ensuring the wire exited from the port before advancing the catheter. The catheter was inserted to the desired depth and the wire removed. Each port was aspirated to ensure adequate blood flow and then flushed with heparinized saline solution. The catheter was secured in place with a 2-0 nylon suture and a sterile dressing was applied. The patient tolerated the procedure well and was in stable condition. All instrument, sponge and needle counts were correct 2. WILLY SOLIS MD Aug 02, 2016 15:59
[2016-08-02] MEDS: LORAZEPAM 2 MG INJ IV PRN (16:00)
[2016-08-02] MEDS ORDERED: VANCOMYCIN 1.25 GM in SOD CHLORIDE 0.9% 250 ML IVPB ONE (16:00)
--- NOTE | 2016-08-02 16:24 | CONS ---
Date/Time of Note Date/Time of Note DATE: 08/02/16 TIME: 16:14 Assessment/Plan Assessment/Plan Additional Assessment/Plan Assessment: * Severe pancreatitis with multi organ SIRS * Imminent respiratory failure * Renal failure * Alcoholic pancreatitis * Alcohol abuse * Diabetes mellitus/DKA * Dyslipidemia Plan: * Continue supportive care and management and prevention of further complications * Prognosis is poor Consultation Date/Type/Reason Admit Date/Time Aug 01, 2016 at 08:41 Date of Consultation: Aug 02, 2016 Type of Consultation: Gastroenterology Reason for Consultation * Severe pancreatitis Hx of Present Illness 70-year-old man admitted heavy ethanol abuser and confirmed by his . The patient presented with complaints of a significant epigastric abdominal pain after alcohol intake, the patient has been diagnosis severe pancreatitis, he has what appears to be acute renal failure and is showing evidence of significant respiratory distress. At the present time the patient is mildly sedated with Ativan, of note he is breathing approximately 40 times a minute and even with this he is oxygen saturation is borderline to inadequate. His blood pressure has remained in the high side. The patient came in with a blood sugar of 500 he is known prediabetic according to his but has never taken medication for diabetes At the present time the patient has evidence of significant SIRS. The etiology of his pancreatitis is most likely alcohol induced. He is management should include prevention and management of complications such as renal failure, respiratory failure, ARDS. From the GI point of view of the patient should remain n.p.o. and supportive care should be continued. There is no evidence to suggest biliary pathology is because of his pancreatitis. The prognosis remains extremely poor due to the multiorgan involvement Subjective hx not possible: pt non-verbal Past Medical History * Dyslipidemia * Prediabetes * Sciatic back pain Past Surgical History Past Surgical Hx: no surgical history Family History Significant Family History: no pertinent family hx Social History Alcohol Use: heavy Smoking Status: Never smoker Drug Use: none Exam/Review of Systems Vital Signs Vitals Vital Signs Date Time Temp Pulse Resp B/P Pulse Ox O2 Delivery O2 Flow Rate FiO2 08/02/16 15:30 116 42 147/136 96 Nasal Cannula 3.0 08/02/16 13:00 97.2 Intake and Output 08/01/16 08/01/16 08/02/16 15:00 23:00 07:00 Intake Total 425 ml 950 ml Output Total 50 ml 50 ml Balance 375 ml 900 ml Exam Constitutional: non-verbal, other (Significant respiratory distress) Head: atraumatic, normocephalic Neck: non-tender, supple Respiratory: diminished breath sounds, labored breathing, other Cardiovascular: nl pulses, regular rate and rhythm Gastrointestinal: bowel sounds, distended, non-tender, soft, tender (Patient is poorly responsive), No ascites, No mass, No rebound or guarding Musculoskeletal: nl extremities to inspection Results Result Diagram: 08/02/16 1430 08/02/16 1430 Results 24 hrs Laboratory Tests Test 08/01/16 18:10 08/02/16 04:20 08/02/16 08:05 08/02/16 08:28 Urine Amorphous Urates FEW Urine Bilirubin 1+ H Urine Clarity SLIGHTLY CLOUDY Urine Color YELLOW Urine Glucose 0.25% H Urine Hemoglobin TRACE Urine Ictotest NEGATIVE Urine Ketones NEGATIVE Urine Leukocyte Esterase NEGATIVE Urine Microscopic RBC 0-2 Urine Microscopic WBC 10-25 Urine Nitrite NEGATIVE Urine Specific [place] >=1.030 H Urine Squamous Epithelial Cells FEW Urine Total Protein 2+ H Urine Urobilinogen 0.2 E.U./dL Urine pH 5.0 Alanine Aminotransferase (ALT/SGPT) 43 87 H Albumin 3.5 # 3.4 Albumin/Globulin Ratio 1.29 1.25 Alkaline Phosphatase 74 64 Amylase Level 1953 H Anion Gap 28 #H 28 H Aspartate Amino Transf (AST/SGOT) 123 H 308 #H Blood Urea Nitrogen 34 #H 38 H Calcium Level 8.3 L 8.2 L Carbon Dioxide Level 13 #L 12 L Chloride Level 106 106 Cholesterol Level 130 Cholesterol/HDL Ratio 2.8 Creatinine 3.54 #H 4.13 H Direct Bilirubin 0.00 0.00 Free Thyroxine Index 2.07 Globulin 2.70 2.70 Glucose Level 502 #*H 514 *H HDL Cholesterol 46 Hemoglobin A1c 7.6 H 7.7 H Indirect Bilirubin 0.6 0.6 LDL Cholesterol, Calculated 49 Lipase 66476 H Magnesium Level 2.6 H Phosphorus Level 3.5 Potassium Level 6.4 #*H 6.4 *H Sodium Level 141 140 Thyroid Stimulating Hormone (TSH) 18.000 H Thyroxine (T4) 5.5 Total Bilirubin 0.6 0.6 Total Protein 6.2 # 6.1 Triglycerides Level 177 H Triiodothyronine (T3) Uptake 37.7 Bedside Glucose 519 *H Test 08/02/16 08:34 08/02/16 08:43 08/02/16 09:20 08/02/16 09:26 Bedside Glucose 530 *H 367 H Arterial Blood HCO3 8.8 *L Arterial Blood Base Excess -15.2 L Arterial Blood Oxygen Saturation 94.3 L Van Test N/A Arterial Blood Gas Puncture Site LB Arterial Blood Carboxyhemoglobin 0.4 Arterial Blood Date Drawn 08/02/2016 9:00:14 AM Arterial Blood Methemoglobin 0.5 Arterial Blood pCO2 (Temp correct) 19.1 L Arterial Blood pH (Temp corrected) 7.280 *L Arterial Blood pO2 (Temp corrected) 79.2 L Blood Gas A-a O2 Differential 176.9 H Blood Gas Critical Value Read Back RIGIDOR P Blood Gas Modality NASAL CANNULA Blood Gas Notified Time 08/02/2016 9:16:11 AM Blood Gas Notified Whom CW Blood Gas Specimen Source Blood arterial Blood Gas Temperature 37.0 FiO2 39.0 Oxyhemoglobin Percent 93.5 Total Hemoglobin 16.6 Alanine Aminotransferase (ALT/SGPT) 114 H Albumin 3.3 Albumin/Globulin Ratio 1.22 Alkaline Phosphatase 62 Anion Gap 27 H Aspartate Amino Transf (AST/SGOT) 382 H Basophils # 0.0 Basophils % 0.2 Blood Urea Nitrogen 39 H Calcium Level 8.2 L Carbon Dioxide Level 13 L Chloride Level 107 Creatinine 4.13 H Direct Bilirubin 0.00 Eosinophils # 0.0 Eosinophils % 0.0 Globulin 2.70 Glucose Level 486 *H Hematocrit 48.8 Hemoglobin 15.4 Indirect Bilirubin 0.6 Lactic Acid Level 12.0 *H Lymphocytes # 1.7 Lymphocytes % 13.6 L Mean Corpuscular Hemoglobin 29.6 Mean Corpuscular Hemoglobin Concent 31.6 L Mean Corpuscular Volume 93.7 Mean Platelet Volume 10.5 H Monocytes # 0.6 Monocytes % 4.5 Neutrophils # 10.0 H Neutrophils % 81.5 H Nucleated Red Blood Cells # 0.0 Nucleated Red Blood Cells % 0.0 Phosphorus Level 4.1 Platelet Count 187 # Potassium Level 6.6 *H Red Blood Count 5.21 Red Cell Distribution Width 14.1 Sodium Level 140 Total Bilirubin 0.6 Total Protein 6.0 L White Blood Count 12.3 #H Test 08/02/16 09:42 08/02/16 10:44 08/02/16 11:29 08/02/16 12:36 Bedside Glucose 392 H 311 H 365 H 232 H Test 08/02/16 13:46 08/02/16 14:30 08/02/16 14:45 08/02/16 15:00 Bedside Glucose 147 150 Anion Gap 20 #H Blood Urea Nitrogen 46 H Calcium Level 7.8 L Carbon Dioxide Level 21 Chloride Level 112 H Creatinine 4.20 H Eosinophils # Eosinophils % Glucose Level 170 # Hematocrit 43.9 Hemoglobin 14.4 Lymphocytes # Lymphocytes % Mean Corpuscular Hemoglobin 30.1 Mean Corpuscular Hemoglobin Concent 32.8 Mean Corpuscular Volume 91.8 Mean Platelet Volume 10.3 Monocytes # Monocytes % Neutrophils # Neutrophils % Platelet Count 174 Potassium Level 5.1 Red Blood Count 4.78 Red Cell Distribution Width 13.8 Sodium Level 148 H White Blood Count 9.4 # Arterial Blood HCO3 14.2 L Arterial Blood Base Excess -8.1 L Arterial Blood Oxygen Saturation 94.2 L Van Test ACCEPTAB Arterial Blood Gas Puncture Site Right Radial Arterial Blood Carboxyhemoglobin 0.2 Arterial Blood Date Drawn 08/02/2016 3:15:38 PM Arterial Blood Methemoglobin 0.4 Arterial Blood pCO2 (Temp correct) 23.0 L Arterial Blood pH (Temp corrected) 7.409 Arterial Blood pO2 (Temp corrected) 70.4 L Blood Gas A-a O2 Differential 116.5 H Blood Gas Modality NASAL CANNULA Blood Gas Notified Time 08/02/2016 3:27:33 PM Blood Gas Notified Whom CW Blood Gas Specimen Source Blood arterial Blood Gas Temperature 37.0 FiO2 30.0 Oxyhemoglobin Percent 93.6 Total Hemoglobin 15.4 Test 08/02/16 15:31 Bedside Glucose 125 Medications Medications Current Medications Ondansetron HCl (Zofran Inj) 4 mg Q6H PRN IV NAUSEA AND/OR VOMITING Last administered on 08/02/16t 16:00; Admin Dose 4 MG; Start 08/01/16 at 09:00 Acetaminophen (Tylenol Tab) 650 mg Q6H PRN PO PAIN LEVEL 1-3 OR FEVER; Start at 09:00 Acetaminophen (Tylenol Supp) 650 mg Q6H PRN [place] PAIN LEVEL 1-3 OR FEVER; Start 08/01/16 at 09:00 Acetaminophen/ Hydrocodone Bitart ([place] (5/325)) 1 tab Q6H PRN PO MODERATE PAIN LEVEL 4-6; Start 08/01/16 at 09:00 Acetaminophen/ Hydrocodone Bitart ([place] (5/325)) 2 tab Q6H PRN PO SEVERE PAIN LEVEL 7-10; Start 08/01/16 at 09:00 Morphine Sulfate (morphine) 2 mg Q4H PRN IV SEVERE PAIN LEVEL 7-10 Last administered on 08/02/16 10:18; Admin Dose 2 MG; Start 08/01/16 at 09:00 Docusate Sodium (Colace) 100 mg Q12H PRN PO CONSTIPATION; Start 08/01/16 at 09: 00 Magnesium Hydroxide (Milk Of Mag) 30 ml DAILY PRN PO CONSTIPATION; Start at 09:00 Bisacodyl (Dulcolax Supp) 10 mg DAILY PRN [place] CONSTIPATION Last administered on 08/02/16 06:21; Admin Dose 10 MG; Start 08/01/16 at 09:00 Pantoprazole (Protonix Iv) 40 mg DAILY@06 IV Last administered on 08/02/16 06: 21; Admin Dose 40 MG; Start 08/02/16 at 06:00 Lorazepam (Ativan) 1 mg Q4 PRN IV etoh withdrawal Last administered on 16:00; Admin Dose 1 MG; Start 08/01/16 at 09:00 Hydralazine HCl (Apresoline) 10 mg Q4H PRN IV sbp>160 Last administered on 08/01 15:40; Admin Dose 10 MG; Start 08/01/16 at 15:00 Dextrose (D50w Syringe) 50 ml Q15M PRN IV For BS 50 or less; Start 08/02/16 at 09:30 Dextrose (D50w Syringe) 25 ml Q15M PRN IV BS between 50-70; Start 08/02/16 at 09:30 Diagnostic Test (Pha) 1 ea 1 ea Q1H XX Last administered on 08/02/16 15:37; Admin Dose 1 EA; Start 08/02/16 at 09:30 Bumetanide 3 mg/ Dextrose 30 ml @ 10 mls/hr Q3H ONCE IVPB Last administered on 08/02/16 14:36; Admin Dose 10 MLS/HR; Start 08/02/16 at 14:00; Stop 08/02/16 at 16:59 Dextrose/Sodium Chloride (D5-1/2ns) 1,000 ml @ 200 mls/hr Q5H IV Last administered on 08/02/16t 13:09; Admin Dose 200 MLS/HR; Start 08/02/16 at 13:30 IV Flush 10 ml 10 ml PRN PRN IV FLUSH LINE; Start 08/02/16 at 14:30 Imipenem/ Cilastatin Sodium 100 ml @ 100 mls/hr Q12 IVPB ; Start 08/02/16 at 15 :00 Vancomycin HCl/ Sodium Chloride (Vancocin/NS) 250 ml @ 83.333 mls/ hr ONCE@16 ONCE IVPB ; Start 08/02/16 at 16:00; Stop 08/02/16 at 18:59 ESTHER GARCIAS MD Aug 02, 2016 16:24
[2016-08-02] MEDS ORDERED: NORepinephrine 8MG/250 ML (PMX 250 ML ONE (16:25)
[2016-08-02] MEDS ORDERED: ALBUMIN HUMAN 5% 500 ML ONE (16:25)
[2016-08-02] MEDS ORDERED: NORepinephrine 8MG/250 ML (PMX 250 ML IV SCH (16:30)
[2016-08-02] MEDS: IMIPENEM-CILAST 500MG IV (PMX) 100 ML IVPB SCH ×2 (16:40→21:00)
[2016-08-02] MEDS: ALBUMIN HUMAN 5% 250 ML IV SCH ×2 (16:44→16:49)
--- NOTE | 2016-08-02 16:47 | QN ---
Documentation Comment I was called by Dr. Schwartz to the ICU for intubation. Endotracheal Intubation by me: Pre assessment performed. Pre-oxygenation performed with 100% oxygen RSI: Performed w/o complication or hypoxic events. Medications as ordered. Blade: MAC 4 Glidescope ET Tube: 7.5 cm Depth: 23 cm at the lip Intubation confirmed by colorimetric CO2, equal breath sounds, quiet over the stomach. Chest x-ray pending HPI: Please note the history and physical exam is limited as the patient is being bagged at this time. I was called for intubation Physical exam: The patient is being bagged by respiratory therapy. LOVE MOCTEZUMA MD Aug 02, 2016 16:46
[2016-08-02 16:53] LABS: LYMPHOCYTES # 1.6 10^3/ul (0.8-2.9); MONOCYTE # 0.6 10^3/ul (0.3-0.9); NEUTROPHIL # 4.2 10^3/ul (1.6-7.5)
--- NOTE | 2016-08-02 17:26 | CONS ---
DATE OF ADMISSION: 08/01/2016 DATE OF CONSULTATION: 08/02/2016 Dear Doctors, Mr. Parker is a 70-year-old gentleman who presented to [facility] secondary to abdomi nal pain and acute renal failure. Upon evaluation, the patient was identified to have pancreatitis and worsening renal function. Since the patient requires hemodialysis urgently as he has been havin g electrolyte abnormalities, vascular surgery consultation was obtained. At the moment, the patient is having some shortness of breath in which he has a nasal cannula and oxygen support. The patient has a nasogastric tube for his bowel rest and he does have abdominal pain. Otherwise, patient suly es any lower extremity claudication or rest pain. He denies any fever or chills. He does have naus ea and does have episodes of vomiting. He has had a bowel movement since we had seen him during our examination. REVIEW OF SYSTEMS: A 12-point review performed and negative except what is mentioned in the HPI. PAST MEDICAL HISTORY: Hypertension, dyslipidemia, previous abdominal tumor although we do not have the report as in terms of what that was. Acute renal failure, GI bleed, uncontrolled diabetes, mor bidly obese with BMI of 30.4, ETOH abuse, history of sepsis. PAST SURGICAL HISTORY: None reported thus far. He did have a right upper extremity PICC line place d. SOCIAL HISTORY: Denies tobacco or illicit drug use. Positive for alcohol extensively. FAMILY HISTORY: Positive for diabetes and hypertension, coronary artery disease. PHYSICAL EXAMINATION: GENERAL: Alert and oriented x3, somewhat in abdominal discomfort. O2 nasal cannula. HEENT: Normocephalic, atraumatic. EOMI. Mucosa dry. NECK: Supple. No carotid bruit. PULMONARY: Coarse breath sounds bilaterally, some crackles at the bases. CARDIOVASCULAR: S1, S2 are present, tachycardic. ABDOMEN: Tenderness diffusely. No signs of peritonitis. Bowel sounds hypoactive, protuberant, bel ly and truncal obesity. EXTREMITIES: Right lower extremity has palpable femoral pulse, nonpalpable pedal pulse. Motor, sen lona intact. Capillary refill 2 to 3 seconds. Left lower extremity palpable femoral pulse, nonpalpable pedal pulse. Motor, sensory intact. Capil gurmeet refill 2 to 3 seconds. ASSESSMENT AND PLAN: Acute renal failure and pancreatitis: It seems the patient has come in with s ignificant pancreatitis with elevated white blood cell count. Further, the patient has had a worsen ing renal function in which his creatinine at the moment is 4.2 and has hyperkalemia of 5.2 requirin g urgent dialysis. We will plan to place an emergent hemodialysis catheter and recommend aggressive resuscitation. Continue with medical optimization. Optimize vascular status (BP meds, diet, nutrition, exercise, sugar control, antiplatelets). Discussed findings, plan and management with the patient and the family member at the bedside. Thank you for allowing us to partake in the care of your patient. Please call with any questions. Dictated By: TERRANCE JOHNSON/RODRIGUEZ Conf#: [id number] DID#: [id number]
[2016-08-02 18:03] LABS: AADO2 Arterial 567.8 mmHg (7.0-24.0); Arterial Base Excess -9.7 mmol/L (-3.0-3); Arterial COHb 0.2 % (0.0-3.0); Arterial Fraction of Oxyhgb 93.8 % (93.0-99.0); Arterial HCO3 18.9 mmol/L (22.0-26.0); Arterial MetHb 0.5 % (0.0-1.5); Arterial Total Hemglobin 13.5 g/dl (12.0-18.0); MODE VENT - AC
--- NOTE | 2016-08-02 18:13 | RADRPT ---
PROCEDURE: XR Chest. CLINICAL INDICATION: Check endotracheal tube position. TECHNIQUE: Single frontal view. COMPARISON: 08/02/2016. 1307 hours. FINDINGS: The endotracheal tube is in satisfactory position 1.6 cm above the citlaly. The nasogastric tube has also been inserted in satisfactory position with the tip in the gastric antrum. The right arm PICC line remains in satisfactory position with the tip in the lower superior vena cava. There is mild atelectasis at the lung bases and low lung volumes, unchanged. The lungs are otherwise clear. The heart size is normal. There is no pleural effusion. There is no pneumothorax. IMPRESSION: 1. Satisfactory position of endotracheal tube, nasogastric tube, and right arm PICC line. 2. No other change from the prior study done earlier the same day. RPTAT: QQ .Shashi España MD, MD Date Time Electronically viewed and signed by .Shashi España MD, on 08/02/2016 18:12 .R/
[2016-08-02] MEDS ORDERED: PROPOFOL 100 ML ONE (21:50)
[2016-08-02] MEDS ORDERED: PHENYLephrine 20MG IN 250 ML 250 ML ONE (21:50)
[2016-08-02] MEDS ORDERED: PHENYLephrine 20MG IN 250 ML 250 ML IV SCH (22:00)
[2016-08-02] MEDS ORDERED: PROPOFOL 100 ML IV SCH (22:00)
[2016-08-02] MEDS: PROPOFOL 100 ML IV SCH (22:17)
[2016-08-02 23:15] LABS: ADD SCAN DIFF NO
[2016-08-02 23:18] LABS: ABNORMAL IP MESSAGE 1; BASOPHIL # 0.1 10^3/ul (0.0-0.1); BASOPHILS % 0.7 % (0.0-2.0); EOSINOPHILS % 0.1 % (0.0-7.0); HEMOGLOBIN 13.3 g/dl (14.0-18.0); LYMPHOCYTES # 2.8 10^3/ul (0.8-2.9); LYMPHOCYTES % 30.2 % (15.0-51.0); MEAN CORPUSCULAR HGB CONC 32.4 g/dl (32.0-37.0); MEAN CORPUSCULAR VOLUME 92.6 fl (82.0-101.0); MEAN PLATELET VOLUME 10.3 fl (7.4-10.4); MONOCYTE # 0.4 10^3/ul (0.3-0.9); MONOCYTES % 3.7 % (0.0-11.0); NEUTROPHILS % 63.9 % (39.0-77.0); NUCLEATED RED BLOOD CELLS% 0.3 /100WBC (0.0-0.0); PLATELET COUNT 145 10^3/UL (140-415); RED BLOOD COUNT 4.43 10^6/ul (4.70-6.10); WHITE BLOOD COUNT 9.4 10^3/ul (4.8-10.8)
[2016-08-02 23:38] LABS: POTASSIUM 3.9 mmol/L (3.5-5.1)
[2016-08-02 23:40] LABS: CREATININE 2.6 mg/dl (0.61-1.24)
[2016-08-02 23:42] LABS: CALCIUM 7.4 mg/dl (8.4-10.2)
[2016-08-03] VITALS (98 sets, daily range): BP systolic 55–177; BP diastolic 27–86; PULSE 0–105; RESP 18–39
[2016-08-03] MEDS: PHENYLephrine 40 MG in DEXTROSE 5% 496 ML IV SCH ×6 (00:28→22:43)
[2016-08-03] MEDS: DEXTROSE 5%-0.45% NACL 1,000 ML IV SCH ×2 (00:35→05:53)
[2016-08-03] MEDS: ACCU-CHEK XX SCH ×25 (01:05→23:48)
[2016-08-03] MEDS: morphine 2 MG INJ IV PRN (01:08)
[2016-08-03] MEDS: LORAZEPAM 2 MG INJ IV PRN (01:34)
[2016-08-03] MEDS: PROPOFOL 100 ML IV SCH ×2 (01:36→10:08)
[2016-08-03] MEDS: INSULIN REGULAR, HUMAN 100 UNIT in SOD CHLORIDE 0.9% 99 ML IV SCH ×4 (04:07→19:37)
[2016-08-03 04:37] LABS: ADD SCAN DIFF NO
[2016-08-03 04:46] LABS: ABNORMAL IP MESSAGE 1; HEMOGLOBIN 12.1 g/dl (14.0-18.0); MEAN CORPUSCULAR HEMOGLOBIN 29.7 pg (29.0-33.0); MEAN CORPUSCULAR HGB CONC 31.8 g/dl (32.0-37.0); MEAN CORPUSCULAR VOLUME 93.4 fl (82.0-101.0); MEAN PLATELET VOLUME 10.8 fl (7.4-10.4); PLATELET COUNT 127 10^3/UL (140-415); RED BLOOD COUNT 4.07 10^6/ul (4.70-6.10); RED CELL DISTRIBUTION WIDTH 14.3 % (11.5-14.5); WHITE BLOOD COUNT 7.6 10^3/ul (4.8-10.8)
[2016-08-03 04:57] LABS: POTASSIUM 3.8 mmol/L (3.5-5.1)
[2016-08-03 05:00] LABS: CREATININE 3.66 mg/dl (0.61-1.24)
[2016-08-03 05:01] LABS: CALCIUM 6.8 mg/dl (8.4-10.2)
[2016-08-03 05:03] LABS: INR 1.36; PROTIME 16.8 Sec (12.2-14.2); PT RATIO 1.3
[2016-08-03 05:04] LABS: PARTIAL THROMBOPLASTIN TIME 43.8 Sec (25.0-35.0); THROMBIN TIME 19.5 SEC (13.8-19.1)
--- NOTE | 2016-08-03 06:33 | CONS ---
DATE OF ADMISSION: 08/01/2016 DATE OF CONSULTATION: INFECTIOUS DISEASE CONSULTATION REQUESTING PHYSICIAN: Dr. Ruiz Schwartz HISTORY OF PRESENT ILLNESS: The patient is a 70-year-old male [place] who was admitted o n 08/01/2016 with a chief complaint of epigastric pain. The patient had been drinking heavily for a long time and had not passed urine for 4 days prior to admission. The patient, upon arrival, was f ound to have a white count of 17,300, a glucose of 500, hemoglobin 16, hematocrit 48%. Urinalysis h ad specific gravity of 1030, pH 5, +1 bilirubin, 10 to 25 WBCs, positive for glucose, +2 protein, ne gative leukocyte esterase, and negative nitrite. The patient's lactic acid level was 12. Amylase w as 1952. He had a CT scan of the abdomen which revealed pancreatitis, diffuse bladder wall thickeni ng, an enlarged heterogeneous prostate, colonic diverticulosis, and a small right inguinal hernia. Chest x-ray revealed mild bilateral atelectasis. The patient subsequently grew 2 positive blood cul tures for gram-positive cocci in clusters. The patient was begun treatment with imipenem and vancom ycin and required endotracheal intubation for respiratory failure. PHYSICAL EXAMINATION GENERAL: Reveals a very obese hirsute male lying in bed with endotracheal intubation and c entral line and cardiac monitors in place. HEENT: The pupils are constricted and react to light. NECK: There is no jugular venous distention. CHEST: Diffuse scattered rhonchi. HEART: Rapid and regular. ABDOMEN: Protuberant. There are absent bowel sounds. The patient has no palpable organs or masses . There appears to be some fluid by examination. EXTREMITIES: Reveal trace edema pedal. INITIAL IMPRESSION: 1. Staphylococcal septicemia. 2. Acute pancreatitis. 3. Hyperglycemia. 4. Lactic acidosis. 5. Hypernatremic dehydration. 6. Acute respiratory failure. 7. Acute renal failure. 8. Rule out obstruction. 9. Alcoholism. 10. Diabetes with an A1c hemoglobin of 7.6%. RECOMMENDATIONS: Continue present treatment with imipenem, vancomycin, fluid resuscitation, and res piratory support. We will evaluate the bladder with ultrasound because there had been no urination and the patient has a large prostate. Dictated By: Bella ANDRADE/RODRIGUEZ Conf#: [id number] DID#: [id number]
[2016-08-03] MEDS: PANTOPRAZOLE 40 MG INJ IV SCH (06:40)
[2016-08-03 08:20] LABS: AADO2 Arterial 472.5 mmHg (7.0-24.0); Arterial Base Excess -13.9 mmol/L (-3.0-3); Arterial COHb 0.7 % (0.0-3.0); Arterial Fraction of Oxyhgb 91.1 % (93.0-99.0); Arterial HCO3 11.7 mmol/L (22.0-26.0); Arterial MetHb 0.3 % (0.0-1.5); Arterial Total Hemglobin 12.9 g/dl (12.0-18.0); MODE VENT - AC
--- NOTE | 2016-08-03 08:56 | CONS ---
Date/Time of Note Date/Time of Note DATE: 08/03/16 TIME: 08:41 Consult Date/Type/Reason Admit Date/Time Aug 01, 2016 at 08:41 Initial Consult Date 08/02/16 Type of Consultation: neph Ordering Provider: IRENE OHARA Objective Vital Signs Date Time Temp Pulse Resp B/P Pulse Ox O2 Delivery O2 Flow Rate FiO2 08/03/16 07:15 100 28 106/65 99 08/03/16 07:00 Mechanical Ventilator 08/03/16 05:19 80 08/03/16 04:00 100.1 08/02/16 16:15 15.0 Intake and Output 08/02/16 08/02/16 08/03/16 15:00 23:00 07:00 Intake Total 1470.46 ml 3194.93 ml 3077.32 ml Output Total 1300 ml 420 ml Balance 1470.46 ml 1894.93 ml 2657.32 ml Results/Medications Result Diagram: 08/03/16 0350 08/03/16 0350 Results 24 hrs Laboratory Tests Test 08/02/16 08:43 08/02/16 09:20 08/02/16 09:26 08/02/16 09:42 Arterial Blood HCO3 8.8 *L Arterial Blood Base Excess -15.2 L Arterial Blood Oxygen Saturation 94.3 L Van Test N/A Arterial Blood Gas Puncture Site LB Arterial Blood Carboxyhemoglobin 0.4 Arterial Blood Date Drawn 08/02/2016 9:00:14 AM Arterial Blood Methemoglobin 0.5 Arterial Blood pCO2 (Temp correct) 19.1 L Arterial Blood pH (Temp corrected) 7.280 *L Arterial Blood pO2 (Temp corrected) 79.2 L Blood Gas A-a O2 Differential 176.9 H Blood Gas Critical Value Read Back RIGIDOR P Blood Gas Modality NASAL CANNULA Blood Gas Notified Time 08/02/2016 9:16:11 AM Blood Gas Notified Whom CW Blood Gas Specimen Source Blood arterial Blood Gas Temperature 37.0 FiO2 39.0 Oxyhemoglobin Percent 93.5 Total Hemoglobin 16.6 Bedside Glucose 367 H 392 H Alanine Aminotransferase (ALT/SGPT) 114 H Albumin 3.3 Albumin/Globulin Ratio 1.22 Alkaline Phosphatase 62 Anion Gap 27 H Aspartate Amino Transf (AST/SGOT) 382 H Basophils # 0.0 Basophils % 0.2 Blood Urea Nitrogen 39 H Calcium Level 8.2 L Carbon Dioxide Level 13 L Chloride Level 107 Creatinine 4.13 H Direct Bilirubin 0.00 Eosinophils # 0.0 Eosinophils % 0.0 Globulin 2.70 Glucose Level 486 *H Hematocrit 48.8 Hemoglobin 15.4 Indirect Bilirubin 0.6 Lactic Acid Level 12.0 *H Lymphocytes # 1.7 Lymphocytes % 13.6 L Mean Corpuscular Hemoglobin 29.6 Mean Corpuscular Hemoglobin Concent 31.6 L Mean Corpuscular Volume 93.7 Mean Platelet Volume 10.5 H Monocytes # 0.6 Monocytes % 4.5 Neutrophils # 10.0 H Neutrophils % 81.5 H Nucleated Red Blood Cells # 0.0 Nucleated Red Blood Cells % 0.0 Phosphorus Level 4.1 Platelet Count 187 # Potassium Level 6.6 *H Red Blood Count 5.21 Red Cell Distribution Width 14.1 Sodium Level 140 Total Bilirubin 0.6 Total Protein 6.0 L White Blood Count 12.3 #H Test 08/02/16 10:44 08/02/16 11:29 08/02/16 12:36 08/02/16 13:46 Bedside Glucose 311 H 365 H 232 H 147 Test 08/02/16 14:30 08/02/16 14:45 08/02/16 15:00 08/02/16 15:31 Anion Gap 20 #H Band Neutrophils % 30.0 H Blood Urea Nitrogen 46 H Calcium Level 7.8 L Carbon Dioxide Level 21 Chloride Level 112 H Creatinine 4.20 H Eosinophils # Eosinophils % Glucose Level 170 # Hematocrit 43.9 Hemoglobin 14.4 Ionized Calcium (Measured) 1.0 L Lymphocytes # 1.6 Lymphocytes % 17.0 Mean Corpuscular Hemoglobin 30.1 Mean Corpuscular Hemoglobin Concent 32.8 Mean Corpuscular Volume 91.8 Mean Platelet Volume 10.3 Metamyelocytes # 0.2 Metamyelocytes % 2.0 H Monocytes # 0.6 Monocytes % 6.0 Neutrophils # 4.2 Neutrophils % 45.0 Platelet Count 174 Potassium Level 5.1 Red Blood Count 4.78 Red Cell Distribution Width 13.8 Sodium Level 148 H White Blood Count 9.4 # Bedside Glucose 150 125 Arterial Blood HCO3 14.2 L Arterial Blood Base Excess -8.1 L Arterial Blood Oxygen Saturation 94.2 L Van Test ACCEPTAB Arterial Blood Gas Puncture Site Right Radial Arterial Blood Carboxyhemoglobin 0.2 Arterial Blood Date Drawn 08/02/2016 3:15:38 PM Arterial Blood Methemoglobin 0.4 Arterial Blood pCO2 (Temp correct) 23.0 L Arterial Blood pH (Temp corrected) 7.409 Arterial Blood pO2 (Temp corrected) 70.4 L Blood Gas A-a O2 Differential 116.5 H Blood Gas Modality NASAL CANNULA Blood Gas Notified Time 08/02/2016 3:27:33 PM Blood Gas Notified Whom CW Blood Gas Specimen Source Blood arterial Blood Gas Temperature 37.0 FiO2 30.0 Oxyhemoglobin Percent 93.6 Total Hemoglobin 15.4 Test 08/02/16 16:22 08/02/16 16:27 08/02/16 17:17 08/02/16 18:32 Bedside Glucose 153 120 108 Arterial Blood HCO3 18.9 L Arterial Blood Base Excess -9.7 L Arterial Blood Oxygen Saturation 94.5 L Van Test N/A Arterial Blood Gas Puncture Site LB Arterial Blood Carboxyhemoglobin 0.2 Arterial Blood Date Drawn 08/02/2016 5:45:35 PM Arterial Blood Methemoglobin 0.5 Arterial Blood pCO2 (Temp correct) 51.8 H Arterial Blood pH (Temp corrected) 7.179 *L Arterial Blood pO2 (Temp corrected) 93.4 Blood Gas A-a O2 Differential 567.8 H Blood Gas Actual Respiration Rate 14 Blood Gas Critical Value Read Back YIFAN RN Blood Gas Low PEEP Setting 5.0 Blood Gas Modality VENT - AC Blood Gas Notified Time 08/02/2016 6:00:14 PM Blood Gas Notified Whom Blood Gas Respiration Rate 14.0 Blood Gas Specimen Source Blood arterial Blood Gas Temperature 37.0 Blood Gas Tidal Volume 500.0 FiO2 100.0 Oxyhemoglobin Percent 93.8 Total Hemoglobin 13.5 Test 08/02/16 20:05 08/02/16 20:55 08/02/16 22:22 08/02/16 22:30 Bedside Glucose 121 126 132 Stool Occult Blood POSITIVE Test 08/02/16 23:00 08/02/16 23:59 08/03/16 00:42 08/03/16 01:41 Anion Gap 19 H Basophils # 0.1 Basophils % 0.7 Blood Urea Nitrogen 28 #H Calcium Level 7.4 L Carbon Dioxide Level 24 Chloride Level 105 Creatinine 2.60 #H Eosinophils # 0.0 Eosinophils % 0.1 Glucose Level 171 Hematocrit 41.0 L Hemoglobin 13.3 L Lymphocytes # 2.8 Lymphocytes % 30.2 Mean Corpuscular Hemoglobin 30.0 Mean Corpuscular Hemoglobin Concent 32.4 Mean Corpuscular Volume 92.6 Mean Platelet Volume 10.3 Monocytes # 0.4 Monocytes % 3.7 Neutrophils # 6.0 Neutrophils % 63.9 Nucleated Red Blood Cells # 0.0 Nucleated Red Blood Cells % 0.3 H Platelet Count 145 Potassium Level 3.9 Red Blood Count 4.43 L Red Cell Distribution Width 14.0 Sodium Level 144 White Blood Count 9.4 Bedside Glucose 161 147 156 Test 08/03/16 02:38 08/03/16 03:44 08/03/16 03:50 08/03/16 04:51 Bedside Glucose 185 188 216 Activated Partial Thromboplast Time 43.8 H Anion Gap 20 H Blood Urea Nitrogen 34 H Calcium Level 6.8 L Carbon Dioxide Level 18 L Chloride Level 105 Creatinine 3.66 #H Eosinophils # Eosinophils % Glucose Level 224 H Hematocrit 38.0 L Hemoglobin 12.1 L INR International Normalized Ratio 1.36 Lactic Acid Level 8.0 *H Lymphocytes # Lymphocytes % Mean Corpuscular Hemoglobin 29.7 Mean Corpuscular Hemoglobin Concent 31.8 L Mean Corpuscular Volume 93.4 Mean Platelet Volume 10.8 H Monocytes # Monocytes % Neutrophils # Neutrophils % Phosphorus Level 2.0 #L Platelet Count 128 L Potassium Level 3.8 Prothrombin Time 16.8 H Prothrombin Time Ratio 1.3 Red Blood Count 4.07 L Red Cell Distribution Width 14.3 Sodium Level 139 Thrombin Time 19.5 H White Blood Count 7.6 Test 08/03/16 06:01 08/03/16 06:38 08/03/16 07:50 08/03/16 08:04 Bedside Glucose 196 199 263 H Arterial Blood HCO3 11.7 L Arterial Blood Base Excess -13.9 L Arterial Blood Oxygen Saturation 92.0 L Van Test N/A Arterial Blood Gas Puncture Site LB Arterial Blood Carboxyhemoglobin 0.7 Arterial Blood Date Drawn 08/03/2016 8:06:22 AM Arterial Blood Methemoglobin 0.3 Arterial Blood pCO2 (Temp correct) 27.1 L Arterial Blood pH (Temp corrected) 7.253 *L Arterial Blood pO2 (Temp corrected) 69.5 L Blood Gas A-a O2 Differential 472.5 H Blood Gas Actual Respiration Rate 27 Blood Gas Critical Value Read Back Resendiz c rn Blood Gas Low PEEP Setting 5.0 Blood Gas Modality VENT - AC Blood Gas Notified Time 08/03/2016 8:19:05 AM Blood Gas Notified Whom ws Blood Gas Respiration Rate 16.0 Blood Gas Specimen Source Blood arterial Blood Gas Temperature 37.0 Blood Gas Tidal Volume 500.0 FiO2 80.0 Oxyhemoglobin Percent 91.1 L Total Hemoglobin 12.9 Medications Current Medications Ondansetron HCl (Zofran Inj) 4 mg Q6H PRN IV NAUSEA AND/OR VOMITING Last administered on 08/02/16 16:00; Admin Dose 4 MG; Start 08/01/16 at 09:00 Acetaminophen (Tylenol Tab) 650 mg Q6H PRN PO PAIN LEVEL 1-3 OR FEVER; Start at 09:00 Acetaminophen (Tylenol Supp) 650 mg Q6H PRN RI PAIN LEVEL 1-3 OR FEVER Last administered on 08/03/16 05:28; Admin Dose 650 MG; Start 08/01/16 at 09:00 Acetaminophen/ Hydrocodone Bitart ([place] (5/325)) 1 tab Q6H PRN PO MODERATE PAIN LEVEL 4-6; Start 08/01/16 at 09:00 Acetaminophen/ Hydrocodone Bitart ([place] (5/325)) 2 tab Q6H PRN PO SEVERE PAIN LEVEL 7-10; Start 08/01/16 at 09:00 Morphine Sulfate (morphine) 2 mg Q4H PRN IV SEVERE PAIN LEVEL 7-10 Last administered on 08/03/16 01:08; Admin Dose 2 MG; Start 08/01/16 at 09:00 Docusate Sodium (Colace) 100 mg Q12H PRN PO CONSTIPATION; Start 08/01/16 at 09: 00 Magnesium Hydroxide (Milk Of Mag) 30 ml DAILY PRN PO CONSTIPATION; Start at 09:00 Bisacodyl (Dulcolax Supp) 10 mg DAILY PRN RI CONSTIPATION Last administered on 08/02/16 06:21; Admin Dose 10 MG; Start 08/01/16 at 09:00 Pantoprazole (Protonix Iv) 40 mg DAILY@06 IV Last administered on 08/03/16 06: 40; Admin Dose 40 MG; Start 08/02/16 at 06:00 Lorazepam (Ativan) 1 mg Q4 PRN IV etoh withdrawal Last administered on 01:34; Admin Dose 1 MG; Start 08/01/16 at 09:00 Hydralazine HCl (Apresoline) 10 mg Q4H PRN IV sbp>160 Last administered on 08/01 15:40; Admin Dose 10 MG; Start 08/01/16 at 15:00 Dextrose (D50w Syringe) 50 ml Q15M PRN IV For BS 50 or less; Start 08/02/16 at 09:30 Dextrose (D50w Syringe) 25 ml Q15M PRN IV BS between 50-70; Start 08/02/16 at 09:30 Diagnostic Test (Pha) 1 ea 1 ea Q1H XX Last administered on 08/03/16 06:40; Admin Dose 1 EA; Start 08/02/16 at 09:30 Dextrose/Sodium Chloride (D5-1/2ns) 1,000 ml @ 200 mls/hr Q5H IV Last administered on 08/03/16 05:53; Admin Dose 200 MLS/HR; Start 08/02/16 at 13:30 IV Flush 10 ml 10 ml PRN PRN IV FLUSH LINE; Start 08/02/16 at 14:30 Imipenem/ Cilastatin Sodium 100 ml @ 100 mls/hr Q12 IVPB Last administered on 08/02/16 21:00; Admin Dose 100 MLS/HR; Start 08/02/16 at 15:00 Norepinephrine 16 mg/Dextrose 500 ml @ 1.87 mls/hr TITRATE IV Last administered on 08/03/16 00:29; Admin Dose 56 MLS/HR; Start 08/02/16 at 17:30 Phenylephrine HCl 250 ml @ 75 mls/hr TITRATE IV Last administered on 22:15; Admin Dose 75 MLS/HR; Start 08/02/16 at 22:00 Propofol 100 ml @ 2.046 mls/ hr Q12H IV Last administered on 08/03/16 01:36; Admin Dose 20.46 MLS/HR; Start 08/02/16 at 22:00 Phenylephrine HCl/ Dextrose (Javi-Syneph/D5W) 500 ml @ 75 mls/hr TITRATE IV Last administered on 08/03/16 00:28; Admin Dose 75 MLS/HR; Start 08/02/16 at 22 :00 Assessment/Plan Chief Complaint/Hosp Course 1. ROD- oliguric. started on hd for acute hyperkalemia. no hd today unless fluid situation requires absolutely in light of circulatory compromise. Monitor labs. assess daily for hd need. all meds dosed ok. 2. Acute pancreatitis. Suspect possibility from alcohol use. Continue IV fluids. Very high kam score. supportive treatments 3. Hyperkalemia. sp acute dialysis. better today 4. Hypernatremia. cont IVF. improved today 5. Acute resp failure-now on vent. 6. History of dyslipidemia. awaiting lipid panel 7. Colonic diverticulosis. Continue IV fluids, n.p.o. for now. Analgesics as needed. 8. Transaminitis, possibly acute alcoholic hepatitis vs sec to alcohol related hepatic steatosis. SOLE showed Cholelithiasis without evidence of abnormal gallbladder wall thickening to suggest cholecystitis. Normal caliber of the intrahepatic and extrahepatic biliary system. Will monitor trend. consider gi eval. 9. suspect DKA. patient with glucose over 500. start on insulin drip. transfer to icu 10. lactic acidosis 11. shock- on multiple pressors. Agressive volume resuscitation. Problems: BERNADETTE PAYTON MD Aug 03, 2016 08:51
[2016-08-03] MEDS ORDERED: SOD CHLORIDE 0.9% 1,000 ML IV ONE (09:00)
[2016-08-03 09:03] LABS: LYMPHOCYTES # 2.6 10^3/ul (0.8-2.9); MONOCYTE # 0.5 10^3/ul (0.3-0.9); MYELOCYTES # 0.1; NEUTROPHIL # 1.1 10^3/ul (1.6-7.5)
[2016-08-03] MEDS: IMIPENEM-CILAST 500MG IV (PMX) 100 ML IVPB SCH ×2 (10:00→21:24)
[2016-08-03] MEDS ORDERED: SODIUM BICARBONATE (IV ADD) 50 MEQ in SOD CHLORIDE 0.45% 1,000 ML IV SCH (10:00)
[2016-08-03] MEDS: SODIUM BICARBONATE (IV ADD) 150 MEQ in SOD CHLORIDE 0.45% 1,000 ML IV SCH ×4 (10:49→23:48)
--- NOTE | 2016-08-03 10:55 | RADRPT ---
PROCEDURE: XR Chest. CLINICAL INDICATION: Pneumonia follow up TECHNIQUE: Anterior chest x-ray. COMPARISON: 08/02/2016 FINDINGS: Endotracheal tube terminates at the citlaly. Nasogastric tube coils and terminates in the antrum of the stomach. Right-sided PICC line terminates the cavoatrial junction. Exam is limited due to low lung volumes. There is crowding of central pulmonary vasculature and bibasilar atelectasis. Small left pleural effusion is unchanged. There is no evidence of pneumothorax. The cardiomediastinal silhouette is unremarkable. The soft tissues are normal. Moderate to advanced degenerative changes seen throughout the thoracic spine. IMPRESSION: 1. The endotracheal tube terminates at the citlaly. Consider withdrawing 1-2 cm. Life-support lines otherwise demonstrates stable and satisfactory position. 2. Low lung volumes with perihilar and bibasilar atelectasis, unchanged. 3. Small left pleural effusion. RPTAT: QQ .Josh Elliott MD, MD Date Time Electronically viewed and signed by .Josh Elliott MD, on 08/03/2016 10:55 .M/
--- NOTE | 2016-08-03 11:45 | PN ---
Date/Time of Note Date/Time of Note DATE: 08/03/16 TIME: 11:40 Assessment/Plan VTE Prophylaxis VTE Prophylaxis Intervention: SCD's Lines/Catheters IV [facility] PIGTAIL (ALEJANDRINA CATH) Urinary Cath still in place: No Assessment/Plan Assessment/Plan Assessment: * Severe pancreatitis with multi organ SIRS * Respiratory failure/ventilator dependent * Renal failure/dialysis * Hypertension/pressor dependent * Alcoholic pancreatitis * Hematochezia, small amounts. Noncritical/monitor H&H * Alcohol abuse * Diabetes mellitus/DKA * Dyslipidemia Plan: * Continue supportive care and management and prevention of further complications * Monitor H&H and transfuse for hemoglobin less than 7.5 * prognosis is poor Subjective 24 Hr Interval Summary Free Text/Dictation Patient was intubated yesterday Currently on 2 pressors at almost maximum doses Sedated Was dialyzed yesterday Nursing reports small amount of blood with bowel movements yesterday, none today Hemoglobin remained stable Exam/Review of Systems Vital Signs Vitals Vital Signs Date Time Temp Pulse Resp B/P Pulse Ox O2 Delivery O2 Flow Rate FiO2 08/03/16 08:55 97 30 99 80 08/03/16 07:15 106/65 08/03/16 07:00 Mechanical Ventilator 08/03/16 04:00 100.1 08/02/16 16:15 15.0 Intake and Output 08/02/16 08/02/16 08/03/16 15:00 23:00 07:00 Intake Total 1470.46 ml 3194.93 ml 3077.32 ml Output Total 1300 ml 420 ml Balance 1470.46 ml 1894.93 ml 2657.32 ml Exam Constitutional: Intubated on 2 pressors Head: atraumatic, normocephalic Neck: non-tender, supple Respiratory: diminished breath sounds, labored breathing, other Cardiovascular: nl pulses, regular rate and rhythm Gastrointestinal: bowel sounds, distended, non-tender, soft, tender (Patient is not responsive), No ascites, No mass, No rebound or guarding Musculoskeletal: nl extremities to inspection Results Result Diagram: 08/03/16 0350 08/03/16 0350 Results 24 hrs Laboratory Tests Test 08/02/16 12:36 08/02/16 13:46 08/02/16 14:30 08/02/16 14:45 Bedside Glucose 232 H 147 150 Anion Gap 20 #H Band Neutrophils % 30.0 H Blood Urea Nitrogen 46 H Calcium Level 7.8 L Carbon Dioxide Level 21 Chloride Level 112 H Creatinine 4.20 H Eosinophils # Eosinophils % Glucose Level 170 # Hematocrit 43.9 Hemoglobin 14.4 Ionized Calcium (Measured) 1.0 L Lymphocytes # 1.6 Lymphocytes % 17.0 Mean Corpuscular Hemoglobin 30.1 Mean Corpuscular Hemoglobin Concent 32.8 Mean Corpuscular Volume 91.8 Mean Platelet Volume 10.3 Metamyelocytes # 0.2 Metamyelocytes % 2.0 H Monocytes # 0.6 Monocytes % 6.0 Neutrophils # 4.2 Neutrophils % 45.0 Platelet Count 174 Potassium Level 5.1 Red Blood Count 4.78 Red Cell Distribution Width 13.8 Sodium Level 148 H White Blood Count 9.4 # Test 08/02/16 15:00 08/02/16 15:31 08/02/16 16:22 08/02/16 16:27 Arterial Blood HCO3 14.2 L 18.9 L Arterial Blood Base Excess -8.1 L -9.7 L Arterial Blood Oxygen Saturation 94.2 L 94.5 L Van Test ACCEPTAB N/A Arterial Blood Gas Puncture Site Right Radial LB Arterial Blood Carboxyhemoglobin 0.2 0.2 Arterial Blood Date Drawn 08/02/2016 3:15:38 PM 08/02/2016 5:45:35 PM Arterial Blood Methemoglobin 0.4 0.5 Arterial Blood pCO2 (Temp correct) 23.0 L 51.8 H Arterial Blood pH (Temp corrected) 7.409 7.179 *L Arterial Blood pO2 (Temp corrected) 70.4 L 93.4 Blood Gas A-a O2 Differential 116.5 H 567.8 H Blood Gas Modality NASAL CANNULA VENT - AC Blood Gas Notified Time 08/02/2016 3:27:33 PM 08/02/2016 6:00:14 PM Blood Gas Notified Whom CW CW Blood Gas Specimen Source Blood arterial Blood arterial Blood Gas Temperature 37.0 37.0 FiO2 30.0 100.0 Oxyhemoglobin Percent 93.6 93.8 Total Hemoglobin 15.4 13.5 Bedside Glucose 125 153 Blood Gas Actual Respiration Rate 14 Blood Gas Critical Value Read Back YIFAN ROGEL Blood Gas Low PEEP Setting 5.0 Blood Gas Respiration Rate 14.0 Blood Gas Tidal Volume 500.0 Test 08/02/16 17:17 08/02/16 18:32 08/02/16 20:05 08/02/16 20:55 Bedside Glucose 120 108 121 126 Test 08/02/16 22:22 08/02/16 22:30 08/02/16 23:00 08/02/16 23:59 Bedside Glucose 132 161 Stool Occult Blood POSITIVE Anion Gap 19 H Basophils # 0.1 Basophils % 0.7 Blood Urea Nitrogen 28 #H Calcium Level 7.4 L Carbon Dioxide Level 24 Chloride Level 105 Creatinine 2.60 #H Eosinophils # 0.0 Eosinophils % 0.1 Glucose Level 171 Hematocrit 41.0 L Hemoglobin 13.3 L Lymphocytes # 2.8 Lymphocytes % 30.2 Mean Corpuscular Hemoglobin 30.0 Mean Corpuscular Hemoglobin Concent 32.4 Mean Corpuscular Volume 92.6 Mean Platelet Volume 10.3 Monocytes # 0.4 Monocytes % 3.7 Neutrophils # 6.0 Neutrophils % 63.9 Nucleated Red Blood Cells # 0.0 Nucleated Red Blood Cells % 0.3 H Platelet Count 145 Potassium Level 3.9 Red Blood Count 4.43 L Red Cell Distribution Width 14.0 Sodium Level 144 White Blood Count 9.4 Test 08/03/16 00:42 08/03/16 01:41 08/03/16 02:38 08/03/16 03:44 Bedside Glucose 147 156 185 188 Test 08/03/16 03:50 08/03/16 04:51 08/03/16 06:01 08/03/16 06:38 Activated Partial Thromboplast Time 43.8 H Anion Gap 20 H Band Neutrophils % 42.0 H Blood Urea Nitrogen 34 H Calcium Level 6.8 L Carbon Dioxide Level 18 L Chloride Level 105 Creatinine 3.66 #H Eosinophils # Eosinophils % Glucose Level 224 H Hematocrit 38.0 L Hemoglobin 12.1 L INR International Normalized Ratio 1.36 Lactic Acid Level 8.0 *H Lymphocytes # 2.6 Lymphocytes % 34.0 Magnesium Level 2.0 Mean Corpuscular Hemoglobin 29.7 Mean Corpuscular Hemoglobin Concent 31.8 L Mean Corpuscular Volume 93.4 Mean Platelet Volume 10.8 H Metamyelocytes # 0.2 Metamyelocytes % 2.0 H Monocytes # 0.5 Monocytes % 6.0 Myelocytes # 0.1 Myelocytes % 1.0 H Neutrophils # 1.1 L Neutrophils % 15.0 L Nucleated Red Blood Cells % 1.0 H Phosphorus Level 2.0 #L Platelet Count 128 L Potassium Level 3.8 Prothrombin Time 16.8 H Prothrombin Time Ratio 1.3 Red Blood Count 4.07 L Red Cell Distribution Width 14.3 Sodium Level 139 Thrombin Time 19.5 H White Blood Count 7.6 Bedside Glucose 216 196 199 Test 08/03/16 07:50 08/03/16 08:04 08/03/16 08:40 08/03/16 09:05 Bedside Glucose 263 H 223 H Arterial Blood HCO3 11.7 L Arterial Blood Base Excess -13.9 L Arterial Blood Oxygen Saturation 92.0 L Van Test N/A Arterial Blood Gas Puncture Site LB Arterial Blood Carboxyhemoglobin 0.7 Arterial Blood Date Drawn 08/03/2016 8:06:22 AM Arterial Blood Methemoglobin 0.3 Arterial Blood pCO2 (Temp correct) 27.1 L Arterial Blood pH (Temp corrected) 7.253 *L Arterial Blood pO2 (Temp corrected) 69.5 L Blood Gas A-a O2 Differential 472.5 H Blood Gas Actual Respiration Rate 27 Blood Gas Critical Value Read Back Astrid vasquez rn Blood Gas Low PEEP Setting 5.0 Blood Gas Modality VENT - AC Blood Gas Notified Time 08/03/2016 8:19:05 AM Blood Gas Notified Whom ws Blood Gas Respiration Rate 16.0 Blood Gas Specimen Source Blood arterial Blood Gas Temperature 37.0 Blood Gas Tidal Volume 500.0 FiO2 80.0 Oxyhemoglobin Percent 91.1 L Total Hemoglobin 12.9 Lactic Acid Level 9.8 *H Lipase 45579 H Test 08/03/16 10:52 Bedside Glucose 247 H Medications Medications Current Medications Ondansetron HCl (Zofran Inj) 4 mg Q6H PRN IV NAUSEA AND/OR VOMITING Last administered on 08/02/16 16:00; Admin Dose 4 MG; Start 08/01/16 at 09:00 Acetaminophen (Tylenol Tab) 650 mg Q6H PRN PO PAIN LEVEL 1-3 OR FEVER; Start at 09:00 Acetaminophen (Tylenol Supp) 650 mg Q6H PRN [place] PAIN LEVEL 1-3 OR FEVER Last administered on 08/03/16 05:28; Admin Dose 650 MG; Start 08/01/16 at 09:00 Acetaminophen/ Hydrocodone Bitart ([place] (5/325)) 1 tab Q6H PRN PO MODERATE PAIN LEVEL 4-6; Start 08/01/16 at 09:00 Acetaminophen/ Hydrocodone Bitart ([place] (5/325)) 2 tab Q6H PRN PO SEVERE PAIN LEVEL 7-10; Start 08/01/16 at 09:00 Morphine Sulfate (morphine) 2 mg Q4H PRN IV SEVERE PAIN LEVEL 7-10 Last administered on 08/03/16 01:08; Admin Dose 2 MG; Start 08/01/16 at 09:00 Docusate Sodium (Colace) 100 mg Q12H PRN PO CONSTIPATION; Start 08/01/16 at 09: 00 Magnesium Hydroxide (Milk Of Mag) 30 ml DAILY PRN PO CONSTIPATION; Start at 09:00 Bisacodyl (Dulcolax Supp) 10 mg DAILY PRN [place] CONSTIPATION Last administered on 08/02/16 06:21; Admin Dose 10 MG; Start 08/01/16 at 09:00 Pantoprazole (Protonix Iv) 40 mg DAILY@06 IV Last administered on 08/03/16 06: 40; Admin Dose 40 MG; Start 08/02/16 at 06:00 Lorazepam (Ativan) 1 mg Q4 PRN IV etoh withdrawal Last administered on 01:34; Admin Dose 1 MG; Start 08/01/16 at 09:00 Hydralazine HCl (Apresoline) 10 mg Q4H PRN IV sbp>160 Last administered on 08/01 15:40; Admin Dose 10 MG; Start 08/01/16 at 15:00 Dextrose (D50w Syringe) 50 ml Q15M PRN IV For BS 50 or less; Start 08/02/16 at 09:30 Dextrose (D50w Syringe) 25 ml Q15M PRN IV BS between 50-70; Start 08/02/16 at 09:30 Diagnostic Test (Pha) (Accucheck) 1 ea Q1H XX Last administered on 08/03/16 06 :40; Admin Dose 1 EA; Start 08/02/16 at 09:30 IV Flush 10 ml 10 ml PRN PRN IV FLUSH LINE; Start 08/02/16 at 14:30 Imipenem/ Cilastatin Sodium 100 ml @ 100 mls/hr Q12 IVPB Last administered on 08/03/16 10:00; Admin Dose 100 MLS/HR; Start 08/02/16 at 15:00 Norepinephrine 16 mg/Dextrose 500 ml @ 1.87 mls/hr TITRATE IV Last administered on 08/03/16 00:29; Admin Dose 56 MLS/HR; Start 08/02/16 at 17:30 Phenylephrine HCl 250 ml @ 75 mls/hr TITRATE IV Last administered on 22:15; Admin Dose 75 MLS/HR; Start 08/02/16 at 22:00 Propofol 100 ml @ 2.046 mls/ hr Q12H IV Last administered on 08/03/16 01:36; Admin Dose 20.46 MLS/HR; Start 08/02/16 at 22:00 Phenylephrine HCl 40 mg/Dextrose 500 ml @ 75 mls/hr TITRATE IV Last administered on 08/03/16 10:55; Admin Dose 150 MLS/HR; Start 08/02/16 at 22:00 Sodium Bicarbonate/ Sodium Chloride (Na Bicarb/1/2 NS) 1,150 ml @ 250 mls/hr Q4H36M IV Last administered on 08/03/16 10:49; Admin Dose 250 MLS/HR; Start at 10:30 ESTHER GARCIAS MD Aug 03, 2016 11:45
--- NOTE | 2016-08-03 12:05 | PN ---
Date/Time of Note Date/Time of Note DATE: 08/03/16 TIME: 11:48 Assessment/Plan VTE Prophylaxis VTE Prophylaxis Intervention: SCD's Lines/Catheters IV Catheter Type (from [facility]): PIGTAIL (ALEJANDRINA CATH) Urinary Cath still in place: No Assessment/Plan Chief Complaint/Hosp Course 1. Severe shock 2/2 EtOH pancreatitis and/or Staph bacteremia Cont pressors and IVF, Lactic Acid at 9.8 this AM, poor prognosis cont Vanco and Imipenem, ID consultation appreciated, F/U on Blood C/S GI following, no indication for Surg consult at this time per discussion with GI Echo to eval for IE as source of Staph bacteremia 2. Resp Failure 2/2 #1 cont vent support, Pulm on the case 3. ROD- oliguric. Renal following, HD for acute hyperkalemia, no HD planned for today unless fluid situation requires absolutely in light of circulatory compromise IVF changed to include Bicarb 4. Hypernatremia-resolved cont IVF 5. Transaminitis 2/2 EtOH vs Shock monitor, GI on the case Steroids not indicated for EtOH Hepatitis per recent studies/recs 6. Hyperglycemia-stable on Insulin gtt UA neg for Ketones and hence no DKA 7. Thrombocytopenia-mild monitor PPX- SCD's Problems: Subjective 24 Hr Interval Summary Subjective hx not possible: pt non-verbal, pt critical status Exam/Review of Systems Vital Signs Vitals Vital Signs Date Time Temp Pulse Resp B/P Pulse Ox O2 Delivery O2 Flow Rate FiO2 08/03/16 08:55 97 30 99 80 08/03/16 07:15 106/65 08/03/16 07:00 Mechanical Ventilator 08/03/16 04:00 100.1 08/02/16 16:15 15.0 Intake and Output 08/02/16 08/02/16 08/03/16 15:00 23:00 07:00 Intake Total 1470.46 ml 3194.93 ml 3077.32 ml Output Total 1300 ml 420 ml Balance 1470.46 ml 1894.93 ml 2657.32 ml Exam Constitutional: non-verbal ENMT: intubated Respiratory: clear to auscultation Cardiovascular: regular rate and rhythm Gastrointestinal: soft, No distended Musculoskeletal: No nl extremities to inspection Results Result Diagram: 08/03/16 0350 08/03/16 0350 Results 24 hrs Laboratory Tests Test 08/02/16 12:36 08/02/16 13:46 08/02/16 14:30 08/02/16 14:45 Bedside Glucose 232 H 147 150 Anion Gap 20 #H Band Neutrophils % 30.0 H Blood Urea Nitrogen 46 H Calcium Level 7.8 L Carbon Dioxide Level 21 Chloride Level 112 H Creatinine 4.20 H Eosinophils # Eosinophils % Glucose Level 170 # Hematocrit 43.9 Hemoglobin 14.4 Ionized Calcium (Measured) 1.0 L Lymphocytes # 1.6 Lymphocytes % 17.0 Mean Corpuscular Hemoglobin 30.1 Mean Corpuscular Hemoglobin Concent 32.8 Mean Corpuscular Volume 91.8 Mean Platelet Volume 10.3 Metamyelocytes # 0.2 Metamyelocytes % 2.0 H Monocytes # 0.6 Monocytes % 6.0 Neutrophils # 4.2 Neutrophils % 45.0 Platelet Count 174 Potassium Level 5.1 Red Blood Count 4.78 Red Cell Distribution Width 13.8 Sodium Level 148 H White Blood Count 9.4 # Test 08/02/16 15:00 08/02/16 15:31 08/02/16 16:22 08/02/16 16:27 Arterial Blood HCO3 14.2 L 18.9 L Arterial Blood Base Excess -8.1 L -9.7 L Arterial Blood Oxygen Saturation 94.2 L 94.5 L Van Test ACCEPTAB N/A Arterial Blood Gas Puncture Site Right Radial LB Arterial Blood Carboxyhemoglobin 0.2 0.2 Arterial Blood Date Drawn 08/02/2016 3:15:38 PM 08/02/2016 5:45:35 PM Arterial Blood Methemoglobin 0.4 0.5 Arterial Blood pCO2 (Temp correct) 23.0 L 51.8 H Arterial Blood pH (Temp corrected) 7.409 7.179 *L Arterial Blood pO2 (Temp corrected) 70.4 L 93.4 Blood Gas A-a O2 Differential 116.5 H 567.8 H Blood Gas Modality NASAL CANNULA VENT - AC Blood Gas Notified Time 08/02/2016 3:27:33 PM 08/02/2016 6:00:14 PM Blood Gas Notified Whom STEVEN HARRIS Blood Gas Specimen Source Blood arterial Blood arterial Blood Gas Temperature 37.0 37.0 FiO2 30.0 100.0 Oxyhemoglobin Percent 93.6 93.8 Total Hemoglobin 15.4 13.5 Bedside Glucose 125 153 Blood Gas Actual Respiration Rate 14 Blood Gas Critical Value Read Back YIFAN RN Blood Gas Low PEEP Setting 5.0 Blood Gas Respiration Rate 14.0 Blood Gas Tidal Volume 500.0 Test 08/02/16 17:17 08/02/16 18:32 08/02/16 20:05 08/02/16 20:55 Bedside Glucose 120 108 121 126 Test 08/02/16 22:22 08/02/16 22:30 08/02/16 23:00 08/02/16 23:59 Bedside Glucose 132 161 Stool Occult Blood POSITIVE Anion Gap 19 H Basophils # 0.1 Basophils % 0.7 Blood Urea Nitrogen 28 #H Calcium Level 7.4 L Carbon Dioxide Level 24 Chloride Level 105 Creatinine 2.60 #H Eosinophils # 0.0 Eosinophils % 0.1 Glucose Level 171 Hematocrit 41.0 L Hemoglobin 13.3 L Lymphocytes # 2.8 Lymphocytes % 30.2 Mean Corpuscular Hemoglobin 30.0 Mean Corpuscular Hemoglobin Concent 32.4 Mean Corpuscular Volume 92.6 Mean Platelet Volume 10.3 Monocytes # 0.4 Monocytes % 3.7 Neutrophils # 6.0 Neutrophils % 63.9 Nucleated Red Blood Cells # 0.0 Nucleated Red Blood Cells % 0.3 H Platelet Count 145 Potassium Level 3.9 Red Blood Count 4.43 L Red Cell Distribution Width 14.0 Sodium Level 144 White Blood Count 9.4 Test 08/03/16 00:42 08/03/16 01:41 08/03/16 02:38 08/03/16 03:44 Bedside Glucose 147 156 185 188 Test 08/03/16 03:50 08/03/16 04:51 08/03/16 06:01 08/03/16 06:38 Activated Partial Thromboplast Time 43.8 H Anion Gap 20 H Band Neutrophils % 42.0 H Blood Urea Nitrogen 34 H Calcium Level 6.8 L Carbon Dioxide Level 18 L Chloride Level 105 Creatinine 3.66 #H Eosinophils # Eosinophils % Glucose Level 224 H Hematocrit 38.0 L Hemoglobin 12.1 L INR International Normalized Ratio 1.36 Lactic Acid Level 8.0 *H Lymphocytes # 2.6 Lymphocytes % 34.0 Magnesium Level 2.0 Mean Corpuscular Hemoglobin 29.7 Mean Corpuscular Hemoglobin Concent 31.8 L Mean Corpuscular Volume 93.4 Mean Platelet Volume 10.8 H Metamyelocytes # 0.2 Metamyelocytes % 2.0 H Monocytes # 0.5 Monocytes % 6.0 Myelocytes # 0.1 Myelocytes % 1.0 H Neutrophils # 1.1 L Neutrophils % 15.0 L Nucleated Red Blood Cells % 1.0 H Phosphorus Level 2.0 #L Platelet Count 128 L Potassium Level 3.8 Prothrombin Time 16.8 H Prothrombin Time Ratio 1.3 Red Blood Count 4.07 L Red Cell Distribution Width 14.3 Sodium Level 139 Thrombin Time 19.5 H White Blood Count 7.6 Bedside Glucose 216 196 199 Test 08/03/16 07:50 08/03/16 08:04 08/03/16 08:40 08/03/16 09:05 Bedside Glucose 263 H 223 H Arterial Blood HCO3 11.7 L Arterial Blood Base Excess -13.9 L Arterial Blood Oxygen Saturation 92.0 L Van Test N/A Arterial Blood Gas Puncture Site LB Arterial Blood Carboxyhemoglobin 0.7 Arterial Blood Date Drawn 08/03/2016 8:06:22 AM Arterial Blood Methemoglobin 0.3 Arterial Blood pCO2 (Temp correct) 27.1 L Arterial Blood pH (Temp corrected) 7.253 *L Arterial Blood pO2 (Temp corrected) 69.5 L Blood Gas A-a O2 Differential 472.5 H Blood Gas Actual Respiration Rate 27 Blood Gas Critical Value Read Back Astrid vasquez rn Blood Gas Low PEEP Setting 5.0 Blood Gas Modality VENT - AC Blood Gas Notified Time 08/03/2016 8:19:05 AM Blood Gas Notified Whom ws Blood Gas Respiration Rate 16.0 Blood Gas Specimen Source Blood arterial Blood Gas Temperature 37.0 Blood Gas Tidal Volume 500.0 FiO2 80.0 Oxyhemoglobin Percent 91.1 L Total Hemoglobin 12.9 Lactic Acid Level 9.8 *H Lipase 75037 H Test 08/03/16 10:52 Bedside Glucose 247 H Medications Medications Current Medications Ondansetron HCl (Zofran Inj) 4 mg Q6H PRN IV NAUSEA AND/OR VOMITING Last administered on 08/02/16 16:00; Admin Dose 4 MG; Start 08/01/16 at 09:00 Acetaminophen (Tylenol Tab) 650 mg Q6H PRN PO PAIN LEVEL 1-3 OR FEVER; Start at 09:00 Acetaminophen (Tylenol Supp) 650 mg Q6H PRN [place] PAIN LEVEL 1-3 OR FEVER Last administered on 08/03/16 05:28; Admin Dose 650 MG; Start 08/01/16 at 09:00 Acetaminophen/ Hydrocodone Bitart ([place] (5/325)) 1 tab Q6H PRN PO MODERATE PAIN LEVEL 4-6; Start 08/01/16 at 09:00 Acetaminophen/ Hydrocodone Bitart ([place] (5/325)) 2 tab Q6H PRN PO SEVERE PAIN LEVEL 7-10; Start 08/01/16 at 09:00 Morphine Sulfate (morphine) 2 mg Q4H PRN IV SEVERE PAIN LEVEL 7-10 Last administered on 08/03/16 01:08; Admin Dose 2 MG; Start 08/01/16 at 09:00 Docusate Sodium (Colace) 100 mg Q12H PRN PO CONSTIPATION; Start 08/01/16 at 09: 00 Magnesium Hydroxide (Milk Of Mag) 30 ml DAILY PRN PO CONSTIPATION; Start at 09:00 Bisacodyl (Dulcolax Supp) 10 mg DAILY PRN [place] CONSTIPATION Last administered on 08/02/16 06:21; Admin Dose 10 MG; Start 08/01/16 at 09:00 Pantoprazole (Protonix Iv) 40 mg DAILY@06 IV Last administered on 08/03/16 06: 40; Admin Dose 40 MG; Start 08/02/16 at 06:00 Lorazepam (Ativan) 1 mg Q4 PRN IV etoh withdrawal Last administered on 01:34; Admin Dose 1 MG; Start 08/01/16 at 09:00 Hydralazine HCl (Apresoline) 10 mg Q4H PRN IV sbp>160 Last administered on 08/01 15:40; Admin Dose 10 MG; Start 08/01/16 at 15:00 Dextrose (D50w Syringe) 50 ml Q15M PRN IV For BS 50 or less; Start 08/02/16 at 09:30 Dextrose (D50w Syringe) 25 ml Q15M PRN IV BS between 50-70; Start 08/02/16 at 09:30 Diagnostic Test (Pha) (Accucheck) 1 ea Q1H XX Last administered on 08/03/16 06 :40; Admin Dose 1 EA; Start 08/02/16 at 09:30 IV Flush 10 ml 10 ml PRN PRN IV FLUSH LINE; Start 08/02/16 at 14:30 Imipenem/ Cilastatin Sodium 100 ml @ 100 mls/hr Q12 IVPB Last administered on 08/03/16 10:00; Admin Dose 100 MLS/HR; Start 08/02/16 at 15:00 Norepinephrine 16 mg/Dextrose 500 ml @ 1.87 mls/hr TITRATE IV Last administered on 08/03/16 00:29; Admin Dose 56 MLS/HR; Start 08/02/16 at 17:30 Phenylephrine HCl 250 ml @ 75 mls/hr TITRATE IV Last administered on 22:15; Admin Dose 75 MLS/HR; Start 08/02/16 at 22:00 Propofol 100 ml @ 2.046 mls/ hr Q12H IV Last administered on 08/03/16 01:36; Admin Dose 20.46 MLS/HR; Start 08/02/16 at 22:00 Phenylephrine HCl 40 mg/Dextrose 500 ml @ 75 mls/hr TITRATE IV Last administered on 08/03/16 10:55; Admin Dose 150 MLS/HR; Start 08/02/16 at 22:00 Sodium Bicarbonate/ Sodium Chloride (Na Bicarb/1/2 NS) 1,150 ml @ 250 mls/hr Q4H36M IV Last administered on 08/03/16 10:49; Admin Dose 250 MLS/HR; Start at 10:30 KRISTINE CHAVEZ Aug 03, 2016 11:59
[2016-08-03] MEDS ORDERED: PHENYLephrine 20MG IN 250 ML 250 ML ONE (12:33)
[2016-08-03] MEDS ORDERED: FENTAnyl (DRIP) 1000 mcg/100mL 100 ML IV SCH (13:11)
[2016-08-03] MEDS ORDERED: VASOPRESSIN 60 UNIT in DEXTROSE 5% 57 ML IV SCH (14:30)
[2016-08-03] MEDS: VASOPRESSIN 60 UNIT in DEXTROSE 5% 57 ML IV SCH ×2 (14:30→22:49)
[2016-08-03] MEDS: MIDAZOLAM (DRIP) 50 mg/50 mL 50 ML IV SCH ×2 (14:42→21:38)
--- NOTE | 2016-08-03 14:57 | PN ---
DATE: 08/03/2016 HISTORY OF PRESENT ILLNESS: The patient Sum was intubated yesterday for increased work of breathing and now stable on mechanical ventilation. He also received 1 round of hemodialysis, per chart. Cu rrently intubated and sedated on mechanical ventilation. PHYSICAL EXAMINATION: VITAL SIGNS: Temperature 98, pulse 77, blood pressure 106/65, O2 saturation 96%, FIO2 of 80%. NECK: Supple, no JVD or lymphadenopathy. CARDIAC: S1, S2, no added sounds or murmurs. CHEST: Diminished air entry bilaterally. ABDOMEN: Distended, tender. EXTREMITIES: No cyanosis, clubbing or edema. NEUROLOGIC: Generalized weakness. LABORATORY DATA: White count 7.6, hemoglobin 12.1, platelets of 127. Lactic acid 9.8, BUN 34, crea tinine 3.66. Arterial blood gas pH 7.25, pCO2 27, PaO2 of 96 with a bicarbonate of 11.77. IMPRESSION AND PLAN: 1. Acute pancreatitis. 2. History of ETOH abuse. 3. Acute renal failure with severe metabolic acidosis, possible hepatorenal syndrome. The patient will require: 1. Continued mechanical ventilation. 2. Continued correction of metabolic acidosis with bicarbonate and/or dialysis. 3. Gastrointestinal recommendations with nasogastric tube to suction. 4. Antibiotics, currently on imipenem and vancomycin. 5. Insulin drip. 6. Overall, prognosis remains guarded. Dictated By: MARISA JUNIOR/RODRIGUEZ Conf#: [id number] DID#: [id number]
--- NOTE | 2016-08-03 16:37 | RADRPT ---
PROCEDURE: XR Chest. CLINICAL INDICATION: Central line placement TECHNIQUE: Anterior chest x-ray. COMPARISON: 08/03/2016 at 0606 hours FINDINGS: There is interval placement of right internal jugular approach central venous catheter which termina dominique at the cavoatrial junction. Right-sided Port-A-Cath catheter, endotracheal tube and nasogastric tube demonstrates stable positio n. Mild consolidation left lung base unchanged from previous exam. Small pleural effusion is unchanged from previous exam. There is no evidence of pneumothorax. The heart size is large. There is atherosclerotic calcification of the aorta. The cardiomediastina l silhouette is unremarkable. The soft tissues are normal. Osseous structures are unremarkable. IMPRESSION: 1. Interval placement of right internal jugular central venous catheter satisfactory position and w ithout evidence of pneumothorax. 2. Stable position of right-sided PICC line and nasogastric tube, again noting that the endotrachea l tube terminates at the citlaly. 3. Small left pleural effusion, unchanged. 4. Atelectasis versus infiltrate in left lung base, unchanged. 5. Cardiomegaly. 6. Atherosclerotic calcification of the aorta. RPTAT: QQ .Josh Elliott MD, Date Time Electronically viewed and signed by .Josh Elliott MD, on 08/03/2016 16:36 .M/
--- NOTE | 2016-08-03 17:11 | RADRPT ---
PROCEDURE: US upper extremity Venous Doppler study. CLINICAL INDICATION: Swelling TECHNIQUE: Multiple sonographic images of the right upper extremity deep venous system was obtaine d utilizing grayscale, color-flow, compressive sonography and doppler imaging with augmentation. Th e images were reviewed on a PACS workstation. COMPARISON: None. FINDINGS: There are normal venous wave forms demonstrated within the internal jugular, subclavian, and axillar y veins. The brachial and basilic veins demonstrate normal venous flow and compressibility. The ra dial and ulnar veins are patent. The cephalic vein is not visualized. IMPRESSION: No sonographic evidence for deep venous thrombosis. RPTAT: HIKT .Shankar Mccoy MD, MD Date Time Electronically viewed and signed by .Shankar Mccoy MD, on 08/03/2016 17:10 .T/
--- NOTE | 2016-08-03 17:28 | SP ---
DATE OF PROCEDURE: 08/03/2016 PROCEDURE: Central line placement. INDICATION: Poor IV access, on multiple vasopressors. DESCRIPTION OF PROCEDURE: The patient was placed in supine Trendelenburg position. The neck was cl eaned and prepped in usual sterile manner. Using ultrasound guidance, internal jugular vein was loc ated, 5 mL of 1% lidocaine passed into the skin. Using a large bore needle, the internal jugular ve in was punctured. Guidewire was passed through without resistance. Following dilatation, a triple lumen catheter passed over guidewire. This was secured in place. The patient had good flow through all 3 ports. Post-central line placement chest x-ray has been requested. The patient seems to hav e tolerated the procedure well without complication. Dictated By: MARISA JUNIOR/RODRIGUEZ Conf#: [id number] DID#: [id number]
--- NOTE | 2016-08-03 18:36 | PN ---
DATE: 08/03/2016 SUBJECTIVE: The patient is doing poorly, on multiple pressors, intubated, unresponsive. VITAL SIGNS: Temperature: T-max 100.4, T-current 100.1, pulse 93, respirations 37, blood pressure 98/66, saturation 98, on 100 FIO2. WBC 7.6, H and H 12.1 and 38, platelets 127, neutrophils 42, ban ds 42, neutrophils 15, bands 42, lymphs 34. Lactic acid today 9.8. INDWELLINGS: Patient has femoral Lisandro, endotracheal tube, NG tube, Hanna catheter, MICROBIOLOGY: Blood culture on admission grew gram-positive cocci in clusters. Repeat blood cultur e and urine culture pending. DIAGNOSTICS: Chest x-ray this morning revealed perihilar and bibasilar atelectasis, small left pleu ral effusions. ANTIMICROBIALS: 1. Vancomycin. 2. 3. Imipenem. PHYSICAL EXAMINATION: GENERAL: Well-developed, obese, elderly man who is unresponsive, lying comfortably in bed. HEENT: Head atraumatic, normocephalic. Sclerae anicteric. Buccal mucosa dry. NECK: Obese. CHEST: Rise symmetrical. Breath sounds diminished. HEART: S1, S2. ABDOMEN: Distended, bowel tones hypoactive. EXTREMITIES: With trace edema. ASSESSMENT: 1. Septic shock with multisystem organ failure. 2. Acute alcoholic pancreatitis. 3. Acute renal failure with severe acidosis. 4. Gastrointestinal bleed with acute anemia. 5. Diabetes. 6. Gram-positive cocci bacteremia. PLAN: The patient remains hemodynamically unstable, overall doing poorly. He is followed by multip le consultants, pending final cultures. Dictated By: ERIK MAHAJAN MONUMENTAL STONEMASON for FALGUNI BERGERON MD NI/NTS Conf#: [id number] DID#: [id number]
--- NOTE | 2016-08-03 20:07 | RADRPT ---
Echocardiogram Report Patient Name: ADELAIDE TAYLOR Gender: Male Date: 1945 Study Date: 03-Aug-2016 Spray Machine Operator: KIM Location: I Ref. Physician: KRISTINE CHAVEZ Quality: Technically Difficult Study Procedures: Transthoracic echocardiogram examination. Indications: Evaluate for IE. 2D/M Mode Doppler Measurement Value Normal Range Measurement Value Normal Range IVSd 2D 1.4 0.6 - 1.1 cm AV Peak [place] 0.7 m/sec LA Dimen 2D 3.3 2.3 - 4.0 cm AV Peak PG 2.1 mmHg LVOT Peak [place] 0.5 m/sec MV E Peak [place] 0.4 m/sec MV A Peak [place] 0.5 m/sec MV E/A 0.9 MV Decel Time 205 msec MV Decel [place] 2 MV E/A 0.9 Findings Left Ventricle: Normal left ventricular cavity size. Severe left ventricular systolic dysfunction. Mild concentric left ventricular hypertrophy. The left ventricular ejection fraction is visually estimated at 30 %. Right Ventricle: Normal right ventricular size. Left Atrium: The left atrium is normal in size and appearance. Right Atrium: The right atrium is normal in size and appearance. Atrial Septum: The atrial septum is not well visualized. Mitral Valve: Normal appearance and function of the mitral valve with trace physiologic regurgitation. Aortic Valve: Normal appearance and function of the aortic valve, imaged from apicals only. No aortic regurgitation. Tricuspid Valve: Normal appearance of the tricuspid valve. Pulmonic Valve: The pulmonic valve is not well visualized. Pericardium: Normal pericardium with no significant pericardial effusion. Aorta: Normal aortic root, imaged from apicals only. IVC: The inferior vena cava is not well visualized. Pulmonary Artery: Pulmonary artery is not well visualized. Conclusions 1.Normal left ventricular cavity size. Severe left ventricular systolic dysfunction. Mild concentric left ventricular hypertrophy. The left ventricular ejection fraction is visually estimated at 30 %. 2.Normal appearance and function of the mitral valve with trace physiologic regurgitation. 3.Normal appearance and function of the aortic valve, imaged from apicals only. No aortic regurgitation. 4.Normal appearance of the tricuspid valve. Electronically Signed By: Amos Todd 03-Aug-2016 20:06:37 -0700 Patient Name: ADELAIDE TAYLOR Study Date: 03-Aug-[id number]
[2016-08-03] MEDS ORDERED: CALCIUM GLUCONATE 10% 2 GM in SOD CHLORIDE 0.9% 100 ML IVPB ONE (23:30)
[2016-08-03] MEDS ORDERED: PHENYLephrine 80 MG in DEXTROSE 5% 242 ML IV PRN (23:30)
[2016-08-03] MEDS ORDERED: NORepinephrine 32 MG in DEXTROSE 5% 218 ML IV PRN (23:30)
[2016-08-04] VITALS (27 sets, daily range): BP systolic 54–97; BP diastolic 37–67; PULSE 85–105; RESP 26–38
[2016-08-04] MEDS: ACCU-CHEK XX SCH ×7 (00:58→06:46)
[2016-08-04] MEDS: PHENYLEPHRINE 80 MG in DEXTROSE 5% 250 ML IV SCH ×2 (01:21→05:45)
[2016-08-04] MEDS: SODIUM BICARBONATE (IV ADD) 150 MEQ in SOD CHLORIDE 0.45% 1,000 ML IV SCH (03:52)
[2016-08-04 05:03] LABS: ADD SCAN DIFF NO
[2016-08-04 05:08] LABS: ABNORMAL IP MESSAGE 1; HEMATOCRIT 35.2 % (42.0-52.0); HEMOGLOBIN 11.2 g/dl (14.0-18.0); MEAN CORPUSCULAR HEMOGLOBIN 29.9 pg (29.0-33.0); MEAN CORPUSCULAR HGB CONC 31.8 g/dl (32.0-37.0); MEAN CORPUSCULAR VOLUME 93.9 fl (82.0-101.0); MEAN PLATELET VOLUME 11.6 fl (7.4-10.4); PLATELET COUNT 68 10^3/UL (140-415); RED BLOOD COUNT 3.75 10^6/ul (4.70-6.10); RED CELL DISTRIBUTION WIDTH 13.9 % (11.5-14.5); WHITE BLOOD COUNT 7.3 10^3/ul (4.8-10.8)
[2016-08-04 05:32] LABS: ALBUMIN 1.9 g/dl (3.3-4.9)
[2016-08-04 05:33] LABS: CHLORIDE 89 mmol/L (97-110); POTASSIUM 4.2 mmol/L (3.5-5.1); SODIUM 127 mmol/L (135-144)
[2016-08-04 05:35] LABS: ALKALINE PHOSPHATASE 164 IU/L (42-121); ANION GAP 27 (8-16); BILIRUBIN,INDIRECT 0.7 mg/dl (0-1.1); BILIRUBIN,TOTAL 3.3 mg/dl (0.2-1.3); CARBON DIOXIDE 15 mmol/L (21-31); CREATININE 4.16 mg/dl (0.61-1.24); TOTAL PROTEIN 3.8 g/dl (6.1-8.1)
[2016-08-04 05:36] LABS: BLOOD UREA NITROGEN 31 mg/dl (7-20); CALCIUM 6.2 mg/dl (8.4-10.2); GLUCOSE 160 mg/dl (70-220); MAGNESIUM 1.8 mg/dl (1.7-2.5); PHOSPHORUS 6.8 mg/dl (2.5-4.9)
[2016-08-04] MEDS: PANTOPRAZOLE 40 MG INJ IV SCH (05:43)
[2016-08-04 05:54] LABS: ALANINE AMINOTRANSFERASE 2606 IU/L (13-69)
--- NOTE | 2016-08-04 07:06 | EN ---
Date/Time of Note Date/Time of Note DATE: 08/04/16 TIME: 07:04 Event Note Medicine Medicine Event Note Note: S: pt intubated still, non responsive. O: - no visible VS noted PE: Gen - Pt lying in bed, non responsive to painful or verbal stimuli HEENT: - pupils non reactive B/L CV: - no heart sounds heard Res: no BS heard GI - no BS heard no pulses palpable Pt today at 6:49AM MARLEE AMEZQUITA Aug 04, 2016 07:06
--- NOTE | 2016-08-04 07:38 | RADRPT ---
PROCEDURE: XR Chest. CLINICAL INDICATION: Shortness of breath. TECHNIQUE: Single frontal view. COMPARISON: 08/03/2016. FINDINGS: The endotracheal tube, nasogastric tube, and right internal jugular vein catheter remain in satisfac tory position. Previously noted right arm PICC line has been removed. There is air space disease b ilaterally in the mid and lower lung zones consistent with pulmonary edema, worse than seen previous ly. Superimposed pneumonia at the lung bases cannot be excluded. The heart is enlarged. There are moderate bilateral pleural effusions, larger than seen previously. There is no pneumothorax. IMPRESSION: 1. Right arm PICC line removed. 2. Worse appearance of the lungs and larger bilateral pleural effusions. RPTAT: QQ .Shashi España MD, MD Date Time Electronically viewed and signed by .Shashi España MD, MD on 08/04/2016 07:37 .R/
--- NOTE | 2016-08-04 07:47 | CONS ---
DATE OF ADMISSION: 08/01/2016 DATE OF CONSULTATION: RENAL CONSULTATION HISTORY OF PRESENT ILLNESS: The patient is a 70-year-old gentleman with past medical history of hyp ertension, dyslipidemia, reported abdominal tumor, presented to the hospital with complaints of abdo mane pain. Patient admits to having some soda, although the family suggested he might have had mor e. In emergency room had a CT scan which showed diffuse acute pancreatitis, also marked thickened b ladder, possible cystitis, colonic diverticulosis. The patient was admitted to the ICU, was noted t o have acute hepatitis, hypokalemia, hypernatremia. He received aggressive fluids. The patient not ed severe hyperkalemia on the morning of 08/02/2016, and renal consultation. It was noted the patien t has become oligoanuric. The patient still complains of pain, but is being medicated. Denies dysu david or hematuria. ____ previous history of kidney disease. PAST MEDICAL HISTORY: As above. MEDICATIONS: From home: None. ALLERGIES: PATIENT HAS NO KNOWN ALLERGIES. SOCIAL HISTORY: Does not smoke, ____, or use drugs. FAMILY HISTORY: History of kidney disease. REVIEW OF SYSTEMS: A 14-point review of systems is attempted and negative unless stated. PHYSICAL EXAMINATION: VITAL SIGNS: We see temperature 98, blood pressure 107/62. HEENT: Normocephalic, atraumatic. Pupils equal, round, reactive to light. Oropharynx shows moist mu cous membranes. NECK: Supple. HEART: Regular rate and rhythm. LUNGS: Clear. ABDOMEN: Soft, nontender, ____ bowel sounds. LABORATORY EVALUATION: Shows potassium 6.6, BUN 49, creatinine 4.13, bicarbonate is 8.8, hemoglobin 13.3, pH 7.28. UA is reviewed under microscopy. Chest x-ray was reviewed with radiologist. IMPRESSION: 1. Acute kidney injury, oligoanuric with severe hyperkalemia, improved with shifting measures, but given the acute nature and severe critical nature, the patient will need emergent dialysis which has been arranged in advance. The patient is seen on dialysis, tolerating for the time being. Assess daily for dialysis needs. ____ planned for tomorrow. 2. Acute pancreatitis, suspect from alcohol use. Continue aggressive IV fluids, very high Patito s core. Supportive treatment. Mortality is predicted at 100% per the Patito criteria. 3. Hyperkalemia on acute dialysis, corrected with some shifting measures. 4. Hypernatremia, better. 5. Acute respiratory failure, ____ and x-ray is fairly normal. Continue aggressive fluid resuscita tion. 6. History of dyslipidemia. Followup lipid studies. 7. Colonic diverticulosis, unlikely to be complicating. 8. Transaminitis, possibly acute alcoholic hepatitis versus secondary to alcohol-related hepatic st eatosis. Consider GI evaluation. Monitor ____. 9. Suspicious diabetic ketoacidosis, start on insulin drip. 10. Lactic acidosis, possibly from a respiratory collapse. Dictated By: BERNADETTE PAYTON MD DF/RODRIGUEZ Conf#: [id number] DID#: [id number]
[2016-08-04 09:45] LABS: ASPARTATE AMINO TRANSFERASE > 7500 IU/L (15-46)
[2016-08-04] MEDS ORDERED: VANCOMYCIN 1.25 GM in SOD CHLORIDE 0.9% 250 ML IVPB SCH (10:30)
[2016-08-04 11:26] LABS: EOSINOPHILS # 0.1 10^3/ul (0.0-0.5); LYMPHOCYTES # 0.8 10^3/ul (0.8-2.9); MONOCYTE # 1.5 10^3/ul (0.3-0.9); MYELOCYTES # 0.1; NEUTROPHIL # 2.6 10^3/ul (1.6-7.5)
[2016-08-04 11:27] LABS: BURR CELLS MODERATE; PLATELET ESTIMATE PLT APPEAR DECREASED
--- NOTE | 2016-08-05 06:19 | EN ---
Date/Time of Note Date/Time of Note DATE: 08/03/2016 TIME: 23:00 Fernie Rosen was called overhead to the ICU to which I responded. On my arrival, CPR was in progress and 1 amp of epinephrine had already been given without return of circulation. Pt had been intubated previously and was being bagged by respiratory. Another amp of epinephrine was ordered and given without effect. I then had the nurse push 1 amp of BiCarb and 1 amp of calcium and circulate this after which he regained a pulse. Given the fact that he was in renal failure and too unstable to be dialyzed, I ordered a Calcium drip in an attempt to stabilize his myocardium. He was already on a BiCarb drip as well and on the maximum dosages of vasopressors. Family was at the bedside during and after the code. KATERYNA FRANKS Aug 05, 2016 06:19
--- NOTE | 2016-08-05 18:15 | RADRPT ---
Vent Rate: 103 bpm RR Interval: 0 msec [place] Interval: 176 msec QRS Duration: 72 msec QT Interval: 324 msec QTC Interval: 424 msec P-R-T [place]: 36 - 59 - 70 degrees Sinus tachycardia Cannot rule out Anterior infarct , age undetermined Abnormal ECG Electronically Signed By: Nick Florez [id number]
--- NOTE | 2016-08-05 18:16 | RADRPT ---
Vent Rate: 114 bpm RR Interval: 0 msec IN Interval: 166 msec QRS Duration: 84 msec QT Interval: 300 msec QTC Interval: 413 msec P-R-T [place]: 46 - 73 - 54 degrees Sinus tachycardia Otherwise normal ECG Electronically Signed By: Nick Florez [id number]
--- NOTE | 2016-08-15 17:43 | DES ---
DATE OF ADMISSION: 08/01/2016 DATE OF : 08/04/2016 DIAGNOSIS: Cardiopulmonary failure secondary to severe shock from severe pancreatitis. SECONDARY DIAGNOSES: 1. Alcohol abuse. 2. Alcohol hepatitis. 3. Acute kidney injury. HOSPITAL COURSE: The patient was a 70-year-old male with a history of alcohol abuse, hypertension, and dyslipidemia. The patient presented with abdominal pain and was found to have severe pancreatit is. He was also noted to have transaminitis secondary likely to alcoholic hepatitis versus shock. The patient did go into severe shock from alcohol pancreatitis, and he also did have coag negative s taph in his blood culture, and the shock could have also been from bacteremia. The patient was ulti mately intubated for respiratory failure. The patient became oliguric and had acute kidney injury, likely secondary to shock. The patient was put on pressors, given IV fluids, and did have an ID con sultation and GI consultation as well. The patient ultimately succumbed to his severe shock and was pronounced on 08/04/2016 by another hospitalist. Dictated By: KRISTINE CHAVEZ MD BS/NTS Conf#: [id number] DID#: [id number]
== END 2016-08-04 06:49 | disposition expired | DRG 871 ==
LOC: E/R 03:51 → MS1 08:41 → ICU 08-02 10:11
PROVIDERS: ADMIT Internal Medicine; ATTEND Internal Medicine
PROC: 02HV33Z Insertion of Infusion Device into Superior Vena Cava, Percutaneous Approach (ICD-10-PCS; principal; 2016-08-02)
PROC: 5A1945Z Respiratory Ventilation, 24-96 Consecutive Hours (ICD-10-PCS; 2016-08-02)
PROC: B548ZZA Ultrasonography of Superior Vena Cava, Guidance (ICD-10-PCS; 2016-08-02)
PROC: 02HV33Z Insertion of Infusion Device into Superior Vena Cava, Percutaneous Approach (ICD-10-PCS; 2016-08-02)
PROC: B548ZZA Ultrasonography of Superior Vena Cava, Guidance (ICD-10-PCS; 2016-08-02)
PROC: 5A1D00Z (ICD-10-PCS; 2016-08-02)
PROC: 0BH17EZ Insertion of Endotracheal Airway into Trachea, Via Natural or Artificial Opening (ICD-10-PCS; 2016-08-02)
DX: A41.9 Sepsis, unspecified organism (principal); K85.20 Alcohol induced acute pancreatitis without necrosis or infection; J96.00 Acute respiratory failure, unspecified whether with hypoxia or hypercapnia; R65.21 Severe sepsis with septic shock; E87.0 Hyperosmolality and hypernatremia; E13.10 Other specified diabetes mellitus with ketoacidosis without coma; N17.9 Acute kidney failure, unspecified; K92.2 Gastrointestinal hemorrhage, unspecified; E87.6 Hypokalemia; I10 Essential (primary) hypertension; E78.5 Hyperlipidemia, unspecified; Z79.4 Long term (current) use of insulin; F10.10 Alcohol abuse, uncomplicated; E86.0 Dehydration; Y90.0 Blood alcohol level of less than 20 mg/100 ml
CPT/HCPCS: 31500; 36415; 36569; 36600; 71010; 74176; 76700; 76937; 80048; 80053; 80061; 80202; 80306; 81001; 81003; 82150; 82270; 82330; 82803; 82962; 83036; 83605; 83690; 83735; 84100; 84436; 84443; 84479; 84484; 85025; 85049; 85610; 85670; 85730; 87040; 87081; 87086; 90935; 92950; 93005; 93306; 93971; 94002; 94003; 94770; 96374; 96375; 96376; A4310; C1769; C9113; J0171; J0360; J0610; J0692; J0743; J1170; J1644; J1815; J2060; J2270; J2370; J2405; J3010; J3370; J3480; J7030; J7042; J7050; J7060; J7070; J7120; P9045